=== PATIENT | male | born 1940 | race Caucasian/White ===

== ENCOUNTER 2016-06-25 06:05 | Observation (INO) | payer MEDICARE, BC ==
[2016-06-25 06:49] LABS: Hematocrit 42 % (42-52); Hemoglobin 14.6 g/dl (14.0-18.0); Mean Corpuscular HGB Conc 35 g/dl (31-36); Mean Corpuscular Hemoglobin 34 pg (27-31); Mean Corpuscular Volume 97 fL (80-94); Mean Platelet Volume 9 um3 (7.4-10.4); Red Blood Count 4.34 10^6/ul (4.0-5.4); Red Cell Distribution Width 13 % (10.5-15)
[2016-06-25 07:00] LABS: Albumin 3.8 g/dL (3.2-5.2); BUN/Creatinine Ratio 31.7 (8-20); Calcium 9.3 mg/dL (8.6-10.3); EGFR African American 116.9 (>60); EGFR Non-African American 90.9 (>60); Globulin 2.8 g/dL (2-4); Magnesium 2.1 mg/dL (1.9-2.7); Potassium 3.7 mmol/L (3.5-5.0); Total Bilirubin 1.2 mg/dL (0.2-1.0); Total Protein 6.6 g/dL (6.4-8.9)
[2016-06-25] MEDS ORDERED: NS 0.9% 500 ML* 500 ML IV ONE (07:00)
[2016-06-25 07:02] LABS: Troponin I 0.03 ng/mL (<0.04)
[2016-06-25 07:15] LABS: Urine Bacteria Absent (Absent); Urine Bilirubin Negative (Negative); Urine Glucose Negative (Negative); Urine Nitrite Negative (Negative)
[2016-06-25] MEDS ORDERED: NS 0.9% 1000 ML* 3,000 ML IV ONE (07:36)
[2016-06-25] MEDS ORDERED: Levofloxacin 750 MG IVPREMIX(* 750 MG/150 ML BAG IVPB ONE (07:37)
--- NOTE | 2016-06-25 09:00 | RAD ---
INDICATION: Syncope. COMPARISON: There are no prior studies available for comparison. TECHNIQUE: A portable view of the chest was obtained. FINDINGS: The heart appears mildly enlarged. The lungs are underinflated. There is a small infiltrate at the left lung base. IMPRESSION: EXPIRATORY EXAM, SMALL LEFT BASILAR INFILTRATE.
[2016-06-25] MEDS ORDERED: Acetaminophen TAB* 325 MG PO PRN (09:16)
[2016-06-25] MEDS ORDERED: Ondansetron INJ* 2 MG/ML VIAL IV PRN (09:16)
[2016-06-25] MEDS ORDERED: NS 0.9% 1000 ML* 1,000 ML IV SCH (09:30)
--- NOTE | 2016-06-25 09:43 | ED ---
I, Oh,Sojorge, scribed for Dyllan Razo MD on 06/25/16 at 0734 . Syncope/Near Syncope - HPI Summary HPI Summary: LEVEL 5 CAVEAT secondary to dementia This 76 y/o male [facility] ambulance for possible unwitnessed syncope after being found on floor this morning. Pt reports that he "ended up on floor", but does not recall how he got there. He is unable to report his activity at time of onset. Pt currently denies any pain , lightheadedness, dysuria, n/v, rhinorrhea, or sore throat. Blood pressure of 102/56 is noted at triage. 88~90% Oxygen sat on RA. Pt is afebrile at time of triage and initial evaluation. present at bedside reports incontinence this morning as well as AMS yesterday while out yesterday. She denies any recent cough. PMHx does include dementia, TIA, HTN, urolithiasis, CLBP, SBO, and GERD. No hx of afib or dysrhythmia per . Primary care involves Dr. Pink. Pt appears to be alert and oriented to place and self. 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 He lives lone at [facility]. expresses concerns that pt may not be able to care for himself back at [facility], and she requests observation admission. - History Of Current Complaint Chief Complaint: EDSyncope Hx Obtained From: Patient, Medical Records Hx From Patient Unobtainable Due To: Dementia Onset/Duration: Sudden Onset, Resolved Timing: Intermittent Episode Lasting Context: Unwitnessed Activity At Onset: Unknown Associated Signs And Symptoms: AMS - Allergies/Home Medications Allergies/Adverse Reactions: Allergies Allergy/AdvReac Type Severity Reaction Status Date / Time Hydrocodone Allergy Intermediate Itching Verified 06/25/16 07:50 Acetaminophen Allergy Unknown Verified 06/25/16 06:49 [From Darvocet-N] Reaction Details CI Pigment Blue 63 Allergy Unknown Verified 06/25/16 06:49 [From Cymbalta] Reaction Details Duloxetine [From Cymbalta] Allergy Unknown Verified 06/25/16 06:49 Reaction Details Meperidine [From Demerol HCl] Allergy Rash Verified 06/25/16 07:31 Propoxyphene Allergy Unknown Verified 06/25/16 06:49 [From Darvocet-N] Reaction Details Home Medications: Home Medications Acetaminophen [Eq Acetaminophen] 325 mg PO TID PRN 06/25/16 [History Confirmed 06/25/16] Aspirin EC Low Dose* [Ecotrin EC Low Dose*] 81 mg PO DAILY 06/25/16 [History Confirmed 06/25/16] Lisinopril [Zestril 10 MG-] 10 mg PO DAILY 06/25/16 [History Confirmed 06/25/16] Sertraline HCl [Zoloft] 100 mg PO DAILY 06/25/16 [History Confirmed 06/25/16] Vardenafil (NF) [Levitra (NF)] 10 mg PO DAILY PRN 06/25/16 [History Confirmed ] fentaNYL PATCH 75 MCG/HR* [Duragesic PATCH 75 Mcg/Hr*] 1 patch TRANSDERM Q72HR 06/25/16 [History Confirmed 06/25/16] PMH/Surg Hx/FS Hx/Imm Hx Endocrine/Hematology History: Denies: Hx Diabetes Cardiovascular History: Reports: Hx Hypertension, Other Cardiovascular Problems/ Disorders - Hx HTN Denies: Hx Pacemaker/ICD GI History: Reports: Hx Hiatal Hernia, Hx Obstructive Bowel - x2, Hx Ileostomy - reversed, Other GI Disorders - GI RESECTION WITH COLOSTOMY IN PAST History: Reports: Hx Kidney Stones, Other Problems/Disorders - Hx kidney stones Musculoskeletal History: Reports: Hx Arthritis, Hx Back Problems, Hx Scoliosis, Other Musculoskeletal History - lower back problem Denies: Hx Bursitis, Hx Congenital Bone Abnormalities, Hx Fibromyalgia, Hx Gout, Hx Orthopedic Injury, Hx Osteoporosis, Hx Tendonitis Sensory History: Reports: Hx Contacts or Glasses Denies: Hx Cataracts, Hx Glaucoma, Hx Macular Degeneration, Hx Deafness, Hx Hearing Aid Opthamlomology History: Reports: Hx Contacts or Glasses Denies: Hx Cataracts, Hx Glaucoma, Hx Macular Degeneration Neurological History: Reports: Hx Dementia, Hx Headaches, Hx Migraine, Hx Transient Ischemic Attacks (TIA) - admission diagnosis Denies: Hx Nerve Disease, Hx Seizures, Hx Spinal Cord Injury Psychiatric History: Denies: Hx Panic Disorder - Surgical History Surgery Procedure, Year, and Place: Colectomy w/ colostomy and reversal 12 yrs ago, appendectomy, double hernia repair as infant, tonsillectomy x2, bowel obstruction June, hip replacement 15years ago Hx Anesthesia Reactions: No - Immunization History Date of Tetanus Vaccine: Unknown Date of Influenza Vaccine: 2011 Infectious Disease History: No Infectious Disease History: Denies: Traveled Outside the [place] in Last 30 Days - Family History Known Family History: Positive: Other Family History: Positive for diverticulitis and heart failure per EMR - Social History Occupation: Retired Lives: Assisted Living - at [facility] Alcohol Use: None Alcohol Amount: glass of wine weekly Hx Substance Use: No Substance Use Type: Reports: None Hx Tobacco Use: No Smoking Status (MU): Never Smoked Tobacco Review of Systems - ROS Summary Review of Systems Summary: LEVEL 5 CAVEAT secondary to dementia Negative: Fever Negative: Nasal Discharge Positive: Other - hypoxia with O2 sat ~ 88% . Negative: Cough Negative: Vomiting, Nausea Positive: incontinence. Negative: dysuria Neurological: Other - negative for lightheaded dizziness Positive: Syncope - possible Positive: Other - AMS per . Negative: Anxious, Depressed All Other Systems Reviewed And Are Negative: No Physical Exam - Summary Physical Exam Summary: The patient is well-nourished in no acute distress and in no acute pain. The skin is warm and dry and skin color reflects adequate perfusion. Decreased skin turgor. Fentanyl patch in place. HEENT: The head is normocephalic and atraumatic. The pupils are equal and reactive. The conjunctivae are clear and without drainage. Nares are patent and without drainage. Mouth reveals DRY mucous membranes and the throat is without erythema and exudate. The external ears are intact. The ear canals are patent and without drainage. The tympanic membranes are intact. Neck is supple with full range of motion and non-tender. There are no carotid bruits. There is no neck vein distension. Respiratory: Chest is non-tender. Left basilar crackel. Cardiovascular: Hear is regular rate and rhythm. There is no murmur or rub auscultated. There is no peripheral edema and pulses are symmetrical and equal. 3 cap refills. Abdomen: The abdomen is soft and non-tender. There are normal bowel sounds heard in all four quadrants and there is no organomegaly palpated. Surgical scars on abd. Pt reports double hernia surgeries. Musculoskeletal: There is no back pain noted. Extremities are non-tender with full range of motion. There is good capillary refill. There is no peripheral edema or calf tenderness elicited. Neurological: Patient is alert and oriented to person, place and time. The patient has symmetrical motor strength in all four extremities. Cranial nerves are grossly intact. Deep tendon reflexes are symmetrical and equal in all four extremities. Psychiatric: The patient has an appropriate affect and does not exhibit any anxiety or depression. Triage Information Reviewed: Yes Vital Signs On Initial Exam: Initial Vitals BP 102/56 06/25/16 06:15 Vital Signs Reviewed: Yes Diagnostics - Vital Signs Vital Signs Temp Pulse Resp BP Pulse Ox 06/25/16 07:00 74 20 108/68 95 06/25/16 06:30 73 18 96/59 95 06/25/16 06:21 96.9 F 85 14 102/56 89 06/25/16 06:17 74 19 94 06/25/16 06:15 102/56 - Laboratory Lab Results: Lab Results 06/25/16 06/25/16 06/25/16 Range/Units 06:10 06:10 06:10 WBC 13.0 H (3.5-10.8) 10^3/ul RBC 4.34 (4.0-5.4) 10^6/ul Hgb 14.6 (14.0-18.0) g/dl Hct 42 (42-52) % MCV 97 H (80-94) fL MCH 34 H (27-31) pg MCHC 35 (31-36) g/dl RDW 13 (10.5-15) % Plt Count 149 L (150-450) 10^3/ul MPV 9 (7.4-10.4) um3 Neut % (Auto) 89.8 H (38-83) % Lymph % (Auto) 4.3 L (25-47) % [place] % (Auto) 5.5 (1-9) % Eos % (Auto) 0.1 (0-6) % Baso % (Auto) 0.3 (0-2) % Absolute Neuts (auto) 11.7 H (1.5-7.7) 10^3/ul Absolute Lymphs (auto) 0.6 L (1.0-4.8) 10^3/ul Absolute Monos (auto) 0.7 (0-0.8) 10^3/ul Absolute Eos (auto) 0 (0-0.6) 10^3/ul Absolute Basos (auto) 0 (0-0.2) 10^3/ul Absolute Nucleated RBC 0.01 10^3/ul Nucleated RBC % 0.1 INR (Anticoag Therapy) (0.89-1.11) APTT (26.0-36.3) seconds Sodium 139 (133-145) mmol/L Potassium 3.7 (3.5-5.0) mmol/L Chloride 106 (101-111) mmol/L Carbon Dioxide 24 (22-32) mmol/L Anion Gap 9 (2-11) mmol/L BUN 26 H (6-24) mg/dL Creatinine 0.82 (0.67-1.17) mg/dL Est GFR ( Amer) 116.9 (>60) Est GFR (Non-Af Amer) 90.9 (>60) BUN/Creatinine Ratio 31.7 H (8-20) Glucose 160 H (70-100) mg/dL Lactic Acid 2.1 H* (0.5-2.0) mmol/L Calcium 9.3 (8.6-10.3) mg/dL Magnesium 2.1 (1.9-2.7) mg/dL Total Bilirubin 1.20 H (0.2-1.0) mg/dL AST 15 (13-39) U/L ALT 15 (7-52) U/L Alkaline Phosphatase 46 (34-104) U/L Total Creatine Kinase 47 (10-223) U/L Troponin I 0.03 (<0.04) ng/mL B-Natriuretic Peptide ( - 100) pg/mL Total Protein 6.6 (6.4-8.9) g/dL Albumin 3.8 (3.2-5.2) g/dL Globulin 2.8 (2-4) g/dL Albumin/Globulin Ratio 1.4 (1-3) 06/25/16 06/25/16 Range/Units 06:10 06:10 WBC (3.5-10.8) 10^3/ul RBC (4.0-5.4) 10^6/ul Hgb (14.0-18.0) g/dl Hct (42-52) % MCV (80-94) fL MCH (27-31) pg MCHC (31-36) g/dl RDW (10.5-15) % Plt Count (150-450) 10^3/ul MPV (7.4-10.4) um3 Neut % (Auto) (38-83) % Lymph % (Auto) (25-47) % [place] % (Auto) (1-9) % Eos % (Auto) (0-6) % Baso % (Auto) (0-2) % Absolute Neuts (auto) (1.5-7.7) 10^3/ul Absolute Lymphs (auto) (1.0-4.8) 10^3/ul Absolute Monos (auto) (0-0.8) 10^3/ul Absolute Eos (auto) (0-0.6) 10^3/ul Absolute Basos (auto) (0-0.2) 10^3/ul Absolute Nucleated RBC 10^3/ul Nucleated RBC % INR (Anticoag Therapy) 1.02 (0.89-1.11) APTT 24.9 L (26.0-36.3) seconds Sodium (133-145) mmol/L Potassium (3.5-5.0) mmol/L Chloride (101-111) mmol/L Carbon Dioxide (22-32) mmol/L Anion Gap (2-11) mmol/L BUN (6-24) mg/dL Creatinine (0.67-1.17) mg/dL Est GFR ( Amer) (>60) Est GFR (Non-Af Amer) (>60) BUN/Creatinine Ratio (8-20) Glucose (70-100) mg/dL Lactic Acid (0.5-2.0) mmol/L Calcium (8.6-10.3) mg/dL Magnesium (1.9-2.7) mg/dL Total Bilirubin (0.2-1.0) mg/dL AST (13-39) U/L ALT (7-52) U/L Alkaline Phosphatase (34-104) U/L Total Creatine Kinase (10-223) U/L Troponin I (<0.04) ng/mL B-Natriuretic Peptide 63 ( - 100) pg/mL Total Protein (6.4-8.9) g/dL Albumin (3.2-5.2) g/dL Globulin (2-4) g/dL Albumin/Globulin Ratio (1-3) Result Diagrams: 06/25/16 06:10 06/25/16 06:10 Lab Statement: Any lab studies that have been ordered have been reviewed, and results considered in the medical decision making process. - Radiology CXR Xray Interpretation: Positive (See Comments) - Expiratory exam. Small left basilar infiltrate Radiology Interpretation Completed By: Radiologist - EKG 0574 Cardiac Rate: NL - 81 bpm EKG Rhythm: Sinus Rhythm ST Segment: Non-Specific Ectopy: PVCs EKG Interpretation: Non-specific ST changes with PVCs. Left axis. Course/Dx Assessment/Plan: This 76 y/o male presents to ED via ambulance after being found on floor in his room at [facility]. He lives alone, and a possible syncopal episode was unwitnessed. PMHx does include dementia. He is alert and somewhat oriented but unable to recall how he ended up on floor. is present at bedside and reports AMS yesterday and urinary incontinence this morning. Upon examination pt is noted with left basilar crackle, soft blood pressure of 102/56, and dehydration. Bloodwork reveals elevated WBC of 13.0 and lactic acid of 2.1. UA does not indicate UTI. Pt is empirically treated with levaquin and IV fluid. - Diagnoses Differential Diagnosis/HQI/PQRI: Positive: Coronary Artery Disease, Hypovolemia , Myocardial Infarction, Other - dehydration, sepsis, pneumonia, uti Provider Diagnoses: Syncope, Dehydration, Pneumonia - Physician Notifications Discussed Care Of Patient With: Dr. Valdes (Hospitalist) at 0750 AM Time Discussed With Above Provider: 07:50 Instructed by Provider To: MD Will See In ED Discharge - Discharge Plan Condition: Stable Disposition: ADMITTED TO [facility] Referrals: Mee Pink MD [Primary Care Provider] - The documentation as recorded by the Adan nesbitt Soohyun accurately reflects the service I personally performed and the decisions made by , Dyllan Razo MD.
--- NOTE | 2016-06-25 10:03 | RAD ---
INDICATION: Unwitnessed fall. COMPARISON: Comparison is made with a prior CT of the brain from November 28, 2013. TECHNIQUE: Contiguous axial sections of the brain were obtained from the skull base to the vertex without contrast. FINDINGS: The ventricles, cisterns and sulci are enlarged consistent with diffuse atrophy. No significant focal abnormality or mass effect is seen. There is no evidence for hemorrhage. No significant focal osseous abnormality is seen. The paranasal sinuses and mastoid air cells appear clear. IMPRESSION: 1. NO EVIDENCE FOR ACUTE INTRACRANIAL ABNORMALITY. 2. MODERATE DIFFUSE ATROPHY.
--- NOTE | 2016-06-25 11:58 | HP ---
ADMISSION HISTORY AND PHYSICAL: DATE OF ADMISSION: 06/25/16 PRIMARY CARE PROVIDER: Dr. Pink. HEALTHCARE PROXY: His . CODE STATUS: DNR/DNI, reviewed with the patient's . SOURCE OF INFORMATION: Information was obtained from interview with the ED physician, the patient's , as well as the patient, although his contribution is unreliable. CHIEF COMPLAINT: Found down. HISTORY OF PRESENT ILLNESS: This is a 76-year-old man with a past medical history of Alzheimer's disease, who reports that he has felt in his usual state of health, although notes that yesterday, she took him out of [place] and he looked "reddy" and like a "deer in the headlights." They did go to [employer] and had some food after which she returned to [place] and left him alone. He went to bed and information thereafter is fairly unreliable. However, he was found this morning around 5 a.m. on the floor. He soiled his underwear with an episode of an urinary incontinence. On presentation to the emergency room, his O2 saturation was 89%. The also indicates that he has been losing weight slowly. His memory is poor. He does not remember to eat. She does deny any recent cough for the patient nor any recent fevers or chills, nausea, vomiting, diarrhea, or symptoms, although it is unclear if the patient will report these. There have been no changes in his medications. When seen by this author , the patient is denying any chest pain, shortness of breath, nausea, vomiting, lightheadedness, palpitations. He generally feels well and has no complaints. PAST MEDICAL HISTORY: 1. Alzheimer's disease. 2. Diastolic heart failure, compensated, based on transthoracic echocardiogram in 2013 3. Chronic lower back pain. 4. Hypertension. 5. Urolithiasis. 6. Diverticulitis, status post two SBOs requiring surgery. 7. GERD. 8. Colostomy, status post reversal. 9. Appendectomy. 10. Hernia repair. HOME MEDICATIONS: 1. Levitra 10 mg daily as needed. 2. Acetaminophen 325 mg three times a day as needed. 3. Multivitamin 1 tab daily. 4. Zoloft 100 mg daily. 5. Prilosec 20 mg daily. 6. Lisinopril 10 mg daily. 7. Fentanyl patch 75 mcg every 3 days. 8. Docusate 100 mg daily. 9. Aspirin 81 mg daily. ALLERGIES: To , HYDROCODONE, ACETAMINOPHEN, PIGMENT BLUE 63, CYMBALTA, DEMEROL, and DARVOCET. The allergy to HYDROCODONE is noted to be, he was confused when discussed with his , although noted to be itching in the chart. FAMILY HISTORY: Reviewed and noncontributory to this admission. SOCIAL HISTORY: No tobacco. No history of alcohol. denies any past medical history of alcohol abuse. Lives at [place]. REVIEW OF SYSTEMS: As per HPI; otherwise, all other systems negative. PHYSICAL EXAMINATION GENERAL: Lying flat in bed, interactive, pleasant, smiling, in no apparent distress. VITAL SIGNS: When seen by this author, 103/60; heart rate 74; he is 98% on 3.5 L nasal cannula, decreased to 94% on room air; respiratory rate of 16; T-max in the emergency room of 96.9. HEENT: Oropharynx is clear. He has moist mucous membranes. His tongue has a very small area of bruising in the right anterior process suggesting bite. NECK: He has nonelevated ___JVD__. No cervical or supraclavicular lymphadenopathy. No carotid bruits. LUNGS: Largely clear except for an area of rales. They do not clear with coughing on his left base. HEART: Regular rate and rhythm. No murmurs, rubs, or gallops. ABDOMEN: Soft, nontender, and nondistended. EXTREMITIES: Warm and well perfused. Less than 2-second cap refill. Good skin turgor. He has no lower extremity edema. NEUROLOGIC: He is alert and oriented x2 to self and hospital, first thinks it is [place], but corrects himself. Unable to name the year. His cranial nerves II through XII are tested and intact. Gait not assessed. PSYCH: No anxiety, agitation, or depression. DIAGNOSTIC STUDIES: Data reviewed: Chest x-ray, small left basilar infiltrate. EKG: Ventricular trigeminy, left axis, Q in aVF, normal R-wave progression, no ST or T-wave changes. ASSESSMENT AND PLAN: This is a 76-year-old man, past medical history of Alzheimer's dementia, presenting after being found down on the floor. 1. Found down on the floor, differential is broad. The patient may very well have just fell out of bed and does not remember. However, malignant arrhythmias , cardiac etiology, or underlying infection likely a possibility as are seizures. At this point, the thinks he looks much improved with the administration of levofloxacin as well as 1.5 L of fluid. I think he warrants observation. Continue telemetry overnight. I will continue another liter of fluid at 125 cc per hour of normal saline. Levaquin to continue tomorrow. We will check CT head given he underwent this fall. Check a repeat troponin. 2. Basilar infiltrate, pneumonia consistent with physical exam. Receiving Levaquin and IV fluids as indicated above. Repeat white blood cell count tomorrow. Likely etiology of hypoxia. 3. Lactic acidosis in the setting of pneumonia and fall. Repeat now. 4. Hypertension. Hold lisinopril in the setting of systolic of 103, diastolic 60. 5. DVT prophylaxis. Lovenox. 6. Code status. DNR/DNI. MOLST completed and placed in the chart. [id number]/CPS #: [id number] SUPA
[2016-06-25] MEDS: Enoxaparin(*) 40 MG/0.4 ML SYR SUBCUT SCH (13:26)
[2016-06-25] MEDS ORDERED: fentaNYL PATCH 75 MCG/HR* 75 MCG TRANSDERM SCH (18:00)
[2016-06-26 06:38] LABS: Hematocrit 37 % (42-52); Hemoglobin 12.7 g/dl (14.0-18.0); Mean Corpuscular HGB Conc 34 g/dl (31-36); Mean Corpuscular Hemoglobin 34 pg (27-31); Mean Corpuscular Volume 99 fL (80-94); Mean Platelet Volume 9 um3 (7.4-10.4); Red Blood Count 3.78 10^6/ul (4.0-5.4); Red Cell Distribution Width 13 % (10.5-15); White Blood Count 6.1 10^3/ul (3.5-10.8)
[2016-06-26 07:00] LABS: BUN/Creatinine Ratio 26.7 (8-20); Calcium 8.7 mg/dL (8.6-10.3); EGFR African American 129.5 (>60); EGFR Non-African American 100.7 (>60); Potassium 3.4 mmol/L (3.5-5.0)
[2016-06-26] MEDS ORDERED: Sertraline* 100 MG TAB PO SCH (09:00)
[2016-06-26] MEDS ORDERED: Aspirin EC Low Dose* 81 MG TAB.EC PO SCH (09:00)
[2016-06-26] MEDS ORDERED: Omeprazole CAP* 20 MG PO SCH (09:00)
[2016-06-26] MEDS ORDERED: Docusate CAP* 100 MG PO SCH (09:00)
[2016-06-26] MEDS ORDERED: Levofloxacin 750 MG IVPREMIX(* 750 MG/150 ML BAG IVPB SCH (09:00)
[2016-06-26] MEDS: Enoxaparin(*) 40 MG/0.4 ML SYR SUBCUT SCH (09:45)
[2016-06-26 12:53] VITALS: BP 119/69
--- NOTE | 2016-06-26 14:24 | DS ---
DISCHARGE SUMMARY: DATE OF ADMISSION: 06/25/16 DATE OF DISCHARGE: 06/26/16 PRIMARY CARE PROVIDER: Dr. Pink. PRIMARY DIAGNOSES: 1. Pneumonia. 2. Unwitnessed fall out of bed. SECONDARY DIAGNOSES: Include: 1. Alzheimer's disease. 2. Compensated diastolic heart failure. 3. Chronic lower back pain. 4. Hypertension. 5. Gastroesophageal reflux disease. 6. Depression. MEDICATIONS ON DISCHARGE: 1. Levitra 10 mg daily as needed. 2. Acetaminophen 325 mg 3 times a day as needed. 3. Multivitamin 1 tab daily. 4. Zoloft 100 mg daily. 5. Prilosec 20 mg a day. 6. Fentanyl patch 75 mcg daily, change every 3 days. 7. Docusate 100 mg daily. 8. Aspirin 81 mg daily. 9. Levaquin 750 mg for 5 additional days. MICROBIOLOGY: Blood cultures, no growth to date. White blood cell count 13, 000 on presentation, 6.1 on following day. PERTINENT IMAGING DATA: Chest x-ray, small left basilar infiltrate. HISTORY OF PRESENT ILLNESS AND HOSPITAL COURSE: This is a 76-year-old man with a past medical history as outlined in the history of present illness on the day of admission by this author including Alzheimer's disease, who had noted he was feeling in his usual state of health, however, did spend the entire date of admission with who noted that the patient had looked " reddy" and like a "deer in the headlights." He is a resident of [place] and went to bed without assistance, was found in the morning on the floor with urinary incontinence. He did not remember the events surrounding his fall. He had a negative CT head for any intracranial abnormalities or bleed. He was admitted to the hospital after his O2 saturation on presentation was found to be 89% and the chest x-ray was consistent with small left basilar pneumonia with IV hydration of normal saline and Levaquin, the patient's condition greatly improved. He is on room air on day of the discharge with no complaints. The thought he is greatly improved and at his baseline. There were no complications during the course of this hospital stay. At followup please; 1. Ensure blood pressure control. 2. Lisinopril was discontinued on discharge, as he was not receiving during the course of his hospital stay and blood pressure was well controlled/low. 3. No other specific labs or vitals that need followup. Reasons to return to the hospital including, but not limited to recurrent or worsening symptoms, chest pain, shortness of breath, nausea, vomiting, lightheadedness, loss of consciousness, inability to obtain or tolerate medications discussed with the patient's . TIME SPENT: Greater than 30 minutes was spent on discharging this patient, greater than half was spent [id number] with the patient. CC: Dr. Pink.* [id number]/CPS #: [id number] SUPA
[2016-06-28] MEDS ORDERED: fentaNYL Patch Check Q Shift 1 NOTE SCH (19:00)
== END 2016-06-26 14:35 ==
LOC: ED 06:05 → MEDTELE 09:16
PROVIDERS: ADMIT Internal Medicine; ATTEND Internal Medicine
DX: J18.9 Pneumonia, unspecified organism (principal); W06.XXXA Fall from bed, initial encounter; Y92.9 Unspecified place or not applicable; E87.2 Acidosis; G30.9 Alzheimer's disease, unspecified; F02.80 Dementia in other diseases classified elsewhere, unspecified severity, without behavioral disturbance, psychotic disturbance, mood disturbance, and anxiety; M54.5 Low back pain; G89.29 Other chronic pain; K21.9 Gastro-esophageal reflux disease without esophagitis; F32.9 Major depressive disorder, single episode, unspecified; Z88.2 Allergy status to sulfonamides; Z88.8 Allergy status to other drugs, medicaments and biological substances; Z88.6 Allergy status to analgesic agent; I49.3 Ventricular premature depolarization; G31.9 Degenerative disease of nervous system, unspecified; R94.31 Abnormal electrocardiogram [ECG] [EKG]; R09.02 Hypoxemia; R06.00 Dyspnea, unspecified; I11.0 Hypertensive heart disease with heart failure; I50.30 Unspecified diastolic (congestive) heart failure
CPT/HCPCS: 36415; 70450; 71010; 80048; 80053; 81003; 81015; 82550; 83605; 83735; 83880; 84484; 85025; 85610; 85730; 87040; 93005; 96365; 96366; 96372; 99285; A9270-GY; G0378; J1650

== ENCOUNTER 2017-11-04 17:54 | Emergency (ER) | payer MEDICARE, OTHER ==
[2017-11-04 19:10] LABS: ABS Basophils 0 10^3/ul (0-0.2); ABS Eosinophils 0.4 10^3/ul (0-0.6); ABS Lymphocytes 1.3 10^3/ul (1.0-4.8); ABS Monocytes 0.5 10^3/ul (0-0.8); ABS Neutrophils 4.9 10^3/ul (1.5-7.7); ABS Nucleated RBC 0 10^3/ul; Eosinophil % 6.1 % (0-6); Hematocrit 45 % (42-52); Hemoglobin 15.5 g/dl (14.0-18.0); Lymphocyte % 18.1 % (25-47); Mean Corpuscular HGB Conc 35 g/dl (31-36); Mean Corpuscular Hemoglobin 34 pg (27-31); Mean Corpuscular Volume 99 fL (80-94); Mean Platelet Volume 7.7 um3 (7.4-10.4); Nucleated Red Blood Cells % 0; Platelet Count 144 10^3/ul (150-450); Red Blood Count 4.51 10^6/ul (4.0-5.4); Red Cell Distribution Width 13 % (10.5-15); White Blood Count 7.3 10^3/ul (3.5-10.8)
[2017-11-04 19:32] LABS: EGFR Non-African American 52.8 (>60)
--- NOTE | 2017-11-04 19:41 | RAD ---
Indication: Altered mental status. Confusion. Comparison: June 25, 2016 chest radiograph and June 06, [address] Technique: Upright AP 1845 hours Report: Leftward rotation noted. Large chronic retrocardiac hiatal hernia. Mild cardiomegaly. Unremarkable central pulmonary vasculature. Mildly tortuous thoracic aorta. No focal pulmonary lesion, compelling alveolar consolidation, pleural effusion, pneumothorax. IMPRESSION: Chronic large retrocardiac hiatal hernia. Mild cardiomegaly without significant change compared with the 2017 exam. No acute cardiopulmonary process evident.
[2017-11-04] MEDS ORDERED: NS 0.9% 1000 ML* 1,000 ML IV ONE (19:49)
[2017-11-04 20:15] LABS: Urine Appearance Cloudy; Urine Blood Negative (Negative); Urine Color Amber; Urine Ketones Negative (Negative); Urine Protein Negative (Negative); Urine Specific Gravity 1.021 (1.010-1.030); Urine Urobilinogen Negative (Negative)
--- NOTE | 2017-11-04 21:12 | ED ---
Jared Franco Natalie, scribed for Thee Fernandes MD on 11/04/17 at 1908 . Altered Mental Status - HPI Summary HPI Summary: The patient is a 77 y/o M presenting to the ED from [facility] accompanied by c/o weakness and confusion starting this morning around 11:30. Per , the pt seemed off this morning when he was with his family. Then she got report from a staff member that the pt had to be wheeled to lunch in a wheelchair because he couldn't ambulate. When the pt's got to the pt's room at approximately 16:30, she found him soaked, which the patient said was shelbi rebecca but the found no evidence of that. She then got him into the shower to wash him off and she noticed the pt was unable to do things like he normally can. He could not figure out how to move his feet to get out of the shower, he was asked to open his eyes but he opened his mouth instead, and then he couldn' t figure out how to get a cup to his mouth. 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 Currently, the pt states he is not in pain, and his states that he is back to baseline. He denies nausea but does not have an appetite. - History Of Current Complaint Chief Complaint: EDAltMentalStatus Stated Complaint: CONFUSION Time Seen by Provider: 11/04/17 18:16 Hx Obtained From: Patient, Family/Constitutional Law Professor - Onset/Duration: Resolved, Suddenly Timing: Lasting Hours Severity Initially: Severe Severity Currently: Mild Character: Confusion Aggravating Factor(s): Nothing Alleviating Factor(s): Nothing Associated Signs And Symptoms: Positive: Weakness. Negative: Nausea - Allergies/Home Medications Allergies/Adverse Reactions: Allergies Allergy/AdvReac Type Severity Reaction Status Date / Time MS Hydrocodone [Hydrocodone] Allergy Intermediate Itching Verified 06/25/16 07: 50 MS Acetaminophen Allergy Unknown Verified 06/25/16 06:49 [From Darvocet-N] Reaction Details MS CI Pigment Blue 63 Allergy Unknown Verified 06/25/16 06:49 [From Cymbalta] Reaction Details MS Duloxetine [From Cymbalta] Allergy Unknown Verified 06/25/16 06:49 Reaction Details MS Meperidine Allergy Rash Verified 06/25/16 07:31 [From Demerol HCl] MS Propoxyphene Allergy Unknown Verified 06/25/16 06:49 [From Darvocet-N] Reaction Details Home Medications: Home Medications Acetaminophen TAB* [Tylenol TAB*] 650 mg PO TID PRN 11/04/17 [History Confirmed 11/04/17] Lisinopril TAB* [Prinivil TAB*] 10 mg PO DAILY 11/04/17 [History Confirmed 11/04] Meloxicam(NF) [Mobic(NF)] 7.5 mg PO DAILY 11/04/17 [History Confirmed 11/04/17] Multivitamins/Minerals TAB* [Theragran/minerals TAB*] 1 tab PO DAILY 11/04/17 [ History Confirmed 11/04/17] Sertraline* [Zoloft*] 100 mg PO DAILY 11/04/17 [History Confirmed 11/04/17] PMH/Surg Hx/FS Hx/Imm Hx Endocrine/Hematology History: Denies: Hx Diabetes Cardiovascular History: Reports: Hx Hypertension, Other Cardiovascular Problems/ Disorders - Hx HTN Denies: Hx Angina, Hx Pacemaker/ICD GI History: Reports: Hx Hiatal Hernia, Hx Obstructive Bowel - x2, Hx Ileostomy - reversed, Other GI Disorders - GI RESECTION WITH COLOSTOMY IN PAST History: Reports: Hx Kidney Stones, Other Problems/Disorders - Hx kidney stones Musculoskeletal History: Reports: Hx Arthritis, Hx Back Problems, Hx Scoliosis, Other Musculoskeletal History - lower back problem Denies: Hx Bursitis, Hx Congenital Bone Abnormalities, Hx Fibromyalgia, Hx Gout, Hx Orthopedic Injury, Hx Osteoporosis, Hx Tendonitis Sensory History: Reports: Hx Contacts or Glasses - reading, Hx Hearing Problem Denies: Hx Cataracts, Hx Glaucoma, Hx Macular Degeneration, Hx Deafness, Hx Hearing Aid Opthamlomology History: Reports: Hx Contacts or Glasses - reading Denies: Hx Cataracts, Hx Glaucoma, Hx Macular Degeneration Neurological History: Reports: Hx Dementia, Hx Headaches, Hx Migraine, Hx Transient Ischemic Attacks (TIA) Denies: Hx Nerve Disease, Hx Seizures, Hx Spinal Cord Injury Psychiatric History: Reports: Hx Anxiety, Hx Depression Denies: Hx Panic Disorder - Surgical History Surgery Procedure, Year, and Place: Colectomy w/ colostomy and reversal 12 yrs ago, appendectomy, double hernia repair as infant, tonsillectomy x2, bowel obstruction June Right hip replacement 15years ago Hx Anesthesia Reactions: No - Immunization History Date of Tetanus Vaccine: Unknown Date of Influenza Vaccine: 2011 Infectious Disease History: No Infectious Disease History: Denies: Traveled Outside the [place] in Last 30 Days - Family History Known Family History: Positive: Other Family History: Positive for diverticulitis and heart failure per EMR - Social History Alcohol Use: None Alcohol Amount: glass of wine weekly Hx Substance Use: No Substance Use Type: Reports: None Hx Tobacco Use: No Smoking Status (MU): Never Smoked Tobacco Review of Systems Positive: Other - decreased appetite. Negative: Nausea Neurological: Negative - facial droop, Other - difficulty with actions, strong switchboard installer Positive: Weakness - unable to ambulate All Other Systems Reviewed And Are Negative: Yes Physical Exam - Summary Physical Exam Summary: Appearance: The patient is well-nourished in no acute distress and in no acute pain. Skin: The skin is warm and dry and skin color reflects adequate perfusion. HEENT: The head is normocephalic and atraumatic. The pupils are equal and reactive. The conjunctivae are clear and without drainage. Nares are patent and without drainage. Mouth reveals moist mucous membranes and the throat is without erythema and exudate. The external ears are intact. The ear canals are patent and without drainage. The tympanic membranes are intact. Neck: The neck is supple with full range of motion and non-tender. There are no carotid bruits. There is no neck vein distension. Respiratory: Chest is non-tender. Lungs are clear to auscultation and breath sounds are symmetrical and equal. Cardiovascular: Heart is regular rate and rhythm. There is a soft systolic injection murmur but no rub auscultated. There is no peripheral edema and pulses are symmetrical and equal. Abdomen: The abdomen is soft and non-tender. There are normal bowel sounds heard in all four quadrants and there is no organomegaly palpated. Musculoskeletal: There is no back tenderness noted. Extremities are non-tender with full range of motion. There is good capillary refill. There is no peripheral edema or calf tenderness elicited. Neurological: Patient is alert and oriented to person, place and time. The patient has symmetrical motor strength in all four extremities. Cranial nerves are grossly intact. Deep tendon reflexes are symmetrical and equal in all four extremities. Psychiatric: The patient has an appropriate affect and does not exhibit any anxiety or depression. Triage Information Reviewed: Yes Vital Signs On Initial Exam: Initial Vitals Temp Pulse Resp BP Pulse Ox 97.8 F 59 18 117/79 94 11/04/17 18:06 11/04/17 18:06 11/04/17 18:06 11/04/17 18:06 11/04/17 18:06 Vital Signs Reviewed: Yes Diagnostics - Vital Signs Vital Signs Temp Pulse Resp BP Pulse Ox 11/04/17 18:06 97.8 F 59 18 117/79 94 - Laboratory Lab Results: Lab Results 11/04/17 11/04/17 11/04/17 Range/Units 18:54 19:06 19:06 WBC 7.3 (3.5-10.8) 10^3/ul RBC 4.51 (4.0-5.4) 10^6/ul Hgb 15.5 (14.0-18.0) g/dl Hct 45 (42-52) % MCV 99 H (80-94) fL MCH 34 H (27-31) pg MCHC 35 (31-36) g/dl RDW 13 (10.5-15) % Plt Count 144 L (150-450) 10^3/ul MPV 7.7 (7.4-10.4) um3 Neut % (Auto) 68.1 (38-83) % Lymph % (Auto) 18.1 L (25-47) % [place] % (Auto) 7.1 H (0-7) % Eos % (Auto) 6.1 H (0-6) % Baso % (Auto) 0.6 (0-2) % Absolute Neuts (auto) 4.9 (1.5-7.7) 10^3/ul Absolute Lymphs (auto) 1.3 (1.0-4.8) 10^3/ul Absolute Monos (auto) 0.5 (0-0.8) 10^3/ul Absolute Eos (auto) 0.4 (0-0.6) 10^3/ul Absolute Basos (auto) 0 (0-0.2) 10^3/ul Absolute Nucleated RBC 0 10^3/ul Nucleated RBC % 0 Sodium 141 (139-145) mmol/L Potassium 4.4 (3.5-5.0) mmol/L Chloride 106 (101-111) mmol/L Carbon Dioxide 28 (22-32) mmol/L Anion Gap 7 (2-11) mmol/L BUN 32 H (6-24) mg/dL Creatinine 1.31 H (0.67-1.17) mg/dL Est GFR ( Amer) 67.9 (>60) Est GFR (Non-Af Amer) 52.8 (>60) BUN/Creatinine Ratio 24.4 H (8-20) Glucose 100 (70-100) mg/dL Lactic Acid 1.1 (0.5-2.0) mmol/L Calcium 10.0 (8.6-10.3) mg/dL Total Bilirubin 0.60 (0.2-1.0) mg/dL AST 17 (13-39) U/L ALT 14 (7-52) U/L Alkaline Phosphatase 59 (34-104) U/L Troponin I 0.01 (<0.04) ng/mL Total Protein 7.0 (6.4-8.9) g/dL Albumin 4.2 (3.2-5.2) g/dL Globulin 2.8 (2-4) g/dL Albumin/Globulin Ratio 1.5 (1-3) Urine Color Urine Appearance Urine pH (5-9) Ur Specific [place] (1.010-1.030) Urine Protein (Negative) Urine Ketones (Negative) Urine Blood (Negative) Urine Nitrate (Negative) Urine Bilirubin (Negative) Urine Urobilinogen (Negative) Ur Leukocyte Esterase (Negative) Urine Glucose (Negative) Urine Ascorbic Acid (Negative) 11/04/17 Range/Units 19:56 WBC (3.5-10.8) 10^3/ul RBC (4.0-5.4) 10^6/ul Hgb (14.0-18.0) g/dl Hct (42-52) % MCV (80-94) fL MCH (27-31) pg MCHC (31-36) g/dl RDW (10.5-15) % Plt Count (150-450) 10^3/ul MPV (7.4-10.4) um3 Neut % (Auto) (38-83) % Lymph % (Auto) (25-47) % [place] % (Auto) (0-7) % Eos % (Auto) (0-6) % Baso % (Auto) (0-2) % Absolute Neuts (auto) (1.5-7.7) 10^3/ul Absolute Lymphs (auto) (1.0-4.8) 10^3/ul Absolute Monos (auto) (0-0.8) 10^3/ul Absolute Eos (auto) (0-0.6) 10^3/ul Absolute Basos (auto) (0-0.2) 10^3/ul Absolute Nucleated RBC 10^3/ul Nucleated RBC % Sodium (139-145) mmol/L Potassium (3.5-5.0) mmol/L Chloride (101-111) mmol/L Carbon Dioxide (22-32) mmol/L Anion Gap (2-11) mmol/L BUN (6-24) mg/dL Creatinine (0.67-1.17) mg/dL Est GFR ( Amer) (>60) Est GFR (Non-Af Amer) (>60) BUN/Creatinine Ratio (8-20) Glucose (70-100) mg/dL Lactic Acid (0.5-2.0) mmol/L Calcium (8.6-10.3) mg/dL Total Bilirubin (0.2-1.0) mg/dL AST (13-39) U/L ALT (7-52) U/L Alkaline Phosphatase (34-104) U/L Troponin I (<0.04) ng/mL Total Protein (6.4-8.9) g/dL Albumin (3.2-5.2) g/dL Globulin (2-4) g/dL Albumin/Globulin Ratio (1-3) Urine Color [place] Urine Appearance Cloudy Urine pH 5.0 (5-9) Ur Specific [place] 1.021 (1.010-1.030) Urine Protein Negative (Negative) Urine Ketones Negative (Negative) Urine Blood Negative (Negative) Urine Nitrate Negative (Negative) Urine Bilirubin Negative (Negative) Urine Urobilinogen Negative (Negative) Ur Leukocyte Esterase Negative (Negative) Urine Glucose Negative (Negative) Urine Ascorbic Acid * A (Negative) Result Diagrams: 11/04/17 19:06 11/04/17 19:06 Lab Statement: Any lab studies that have been ordered have been reviewed, and results considered in the medical decision making process. - Radiology CXR Xray Interpretation: Positive (See Comments) - Chronic large retrocardiac hiatal hernia. Mild cardiomegaly without significant change compared with the 2017 exam. No acute cardiopulmonary process evident. ED physician has reviewed this report. Radiology Interpretation Completed By: Radiologist - EKG 18:59 Cardiac Rate: Bradycardia EKG Rhythm: Sinus Bradycardia - 53 BPM EKG Interpretation: Prolonged OR interval. LVH. Re-Evaluation - Re-Evaluation First Eval Re-Evaluation Time: 20:50 Change: Improved Comment: I spoke with the patient about imaging, labwork, and discharge home. Altered Mental Statu Course/Dx - Course Course Of Treatment: It is unclear exactly what transpired with Mr. Avery today. By the time of arrival in the emergency department his felt that he was back to his normal self. Routine labs were ordered and he was found to be mildly dehydrated and given a liter of normal saline. I will let him go back to the retirement and recommend follow-up with his PCP. - Diagnoses Provider Diagnoses: Dehydration Discharge - Sign-Out/Discharge Documenting (check all that apply): Discharge/Admit/Transfer - Discharge Plan Condition: Stable Disposition: HOME Patient Education Materials: Dehydration (ED) Referrals: Mee Pink MD [Primary Care Provider] - 3 Days Additional Instructions: Follow up with your primary care provider in 2-3 days. Return to the emergency department for any new or worsening symptoms. - Billing Disposition and Condition Condition: STABLE Disposition: HOME The documentation as recorded by the Jared nesbitt Natalie accurately reflects the service I personally performed and the decisions made by me, Thee Fernandes MD.
[2017-11-04 21:29] VITALS: BP 153/90
== END 2017-11-04 21:29 | disposition home or self-care (01) ==
LOC: ED 17:54
DX: E86.0 Dehydration (principal); I10 Essential (primary) hypertension; I51.7 Cardiomegaly; K44.9 Diaphragmatic hernia without obstruction or gangrene; F03.90 Unspecified dementia, unspecified severity, without behavioral disturbance, psychotic disturbance, mood disturbance, and anxiety; Z86.73 Personal history of transient ischemic attack (TIA), and cerebral infarction without residual deficits; Z88.5 Allergy status to narcotic agent; Z88.8 Allergy status to other drugs, medicaments and biological substances
CPT/HCPCS: 36415; 71045; 80053; 81003; 83605; 84484; 85025; 93005; 96360; 99283

== ENCOUNTER 2019-02-03 11:36 | Inpatient (IN) | payer MEDICARE, OTHER ==
--- OUTSIDE RECORDS SUMMARY | 2019-02-03 12:06 | XMS REPORT | Summary of Care ---
:1940 Author Organization [facility] Address [address] [address] Care Team Providers Name Role Phone Mee Pink MD Primary Care Provider Reason for Visit Reason Comments ER F/U [facility] 01-27-19. Reduced Fentanyl Encounter Details Date Type Department Care Team Description 01/30/2019 Office Visit [facility] Internal Mee Pink MD Chronic low back pain without sciatica, unspecified back pain laterality ( Primary Dx); Medicine [address] Alzheimer's dementia without behavioral disturbance, unspecified timing of dementia onset [address] [place], [place] [id number] [place] [address] [phone] Allergies Active Allergy Reactions Severity Noted Date Comments Duloxetine Hcl ASSOCIATE DOCTOR Reaction 02/06/2013 Made too tired Propoxyphene N-Apap Other 07/20/2007 HALLUCINATIONS Demerol Other 07/20/2007 HALLUCINATIONS documented as of this encounter (statuses as of 01/30/2019) Medications Medication Sig Dispensed Refills Start Date End Date Status acetaminophen Take 2 Tabs by 100 Tab 3 04/13/2015 Active (TYLENOL) 325 MG mouth THREE Oral TabIndications: TIMES DAILY Fever, Pain NEEDED for Pain or Fever. Patient unable to identify need Indications: Fever, Pain therapeutic Take 1 Tab by 30 Tab 11 05/15/2017 Active multivitamin mouth DAILY. (THERAGRAN-M) Oral TabIndications: Nutritional Support Wound Dressings 1 Each by Apply 30 Each 0 06/18/2018 Active (TEGADERM MATRIX externally DRESSING) Apply route EVERY externally THREE DAYS. PadsIndications: Apply over Chronic low back Fentanyl patch pain without every 3 days sciatica, unspecified back pain laterality Incontinence Supply 1 Each by Does 100 Each 5 06/21/2018 Active Disposable (PROCARE not apply route ADULT BRIEFS LARGE) DIRECTED. Does not apply MiscIndications: Alzheimer's dementia without behavioral disturbance, unspecified timing of dementia onset acetaminophen Take 2 Tabs by 60 Tab 5 06/21/2018 Active (TYLENOL) 500 MG mouth TWO Oral Tab TIMES DAILY BEFORE MEALS. lisinopril Take 1 Tab by 90 Tab 3 08/15/2018 Active (PRINIVIL, ZESTRIL) mouth DAILY. 10 MG Oral TabIndications: Mixed hyperlipidemia Vitamins A & D (BABY 1 Dose by Apply 1 Tube 3 12/04/2018 Active VITAMIN A & D) Apply externally externally Ointment route DAILY NEEDED (as needed). Vitamins A & D (BABY 1 Dose by Apply 1 Tube 3 12/04/2018 Active VITAMIN A & D) Apply externally externally Ointment route DAILY NEEDED (as needed). docusate sodium Take 1 Cap by 90 Cap 3 12/04/2018 Active (DOCQLACE) 100 MG mouth DAILY. Oral Cap sertraline (ZOLOFT) Take 0.5 Tabs 90 Tab 3 12/10/2018 Active 100 MG Oral by mouth DAILY. TabIndications: Depression, unspecified depression type sertraline (ZOLOFT) Take 1 Tab by 90 Tab 3 12/11/2018 Active 50 MG Oral Tab mouth DAILY. fentaNYL (DURAGESIC) Place 1 Patch 10 Patch 0 01/30/2019 Active 50 MCG/HR onto skin EVERY Transdermal PATCH 72 THREE DAYS. Max HRIndications: Daily Amount: 1 Chronic low back Patch. pain without sciatica, unspecified back pain laterality fentaNYL (DURAGESIC) Place 1 Patch 30 Patch 0 12/18/2018 Discontinued 75 MCG/HR onto skin EVERY 9 Transdermal PATCH 72 THREE DAYS. Max HRIndications: Daily Amount: Chronic low back 75 mcg. Code D pain without sciatica, unspecified back pain laterality documented as of this encounter (statuses as of 01/30/2019) Active Problems Problem Noted Date Stomach upset 11/02/2016 Degenerative disc disease, lumbar 11/02/2015 Primary osteoarthritis of left hip 11/02/2015 PAC (premature atrial contraction) 07/10/2013 Overview: Noted on exam and in kEKG 06/17 Sprain of lumbar region 04/02/2013 Depression 04/17/2012 Alzheimer's disease 04/17/2012 Overview: Diagnosed by Dr. Damon April 2012; Aricept started. Chronic low back pain 02/27/2012 Overview: Regular narcotic medication - Contract 10/15 BMI 30.0-30.9,adult 11/06/2011 Overview: This patient's BMI has been calculated and is above average, and BMI management plan is completed. . Diverticulitis of colon with perforation 10/17/2008 Overview: Diverticulitis, small bowel obstruction with colonic resection 1995 , status post appendectomy Status post hip replacement 10/17/2008 Overview: Right Replaced inactive diagnosis Essential hypertension 11/15/2004 documented as of this encounter (statuses as of 01/30/2019) Resolved Problems Problem Noted Date Resolved Date Mild cognitive impairment 02/27/2012 03/12/2015 documented as of this encounter (statuses as of 01/30/2019) Immunizations Name Administration Dates Next Due Influenza (IM) Preservative Free 03/11/2014, 03/21/2013, 02/27/2012, 02/15/2011 Influenza Vaccine High Dose 03/16/2015 PNEUMOCOCCAL POLYSACCHARIDE VACCINE 03/22/2011 Pneumococcal Conjugate(13 Valent) 10/09/2014 TDAP Vaccine 03/19/2010 documented as of this encounter Social History Tobacco Use Types Packs/Day Years Used Date Never Smoker Smokeless Tobacco: Never Used Alcohol Use Drinks/Week oz/Week Comments Yes 1 Glasses of wine 1.0 Sex Assigned at Date Recorded Not on file Job Start Date Occupation Industry Not on file Not on file Not on file Travel History Travel Start Travel End No recent travel history available. documented as of this encounter Last Filed Vital Signs Vital Sign Reading Time Taken Comments Blood Pressure 139/77 01/30/2019 2:57 PM EDT Pulse 80 01/30/2019 2:57 PM EDT Temperature - - Respiratory Rate - - Oxygen Saturation 92% 01/30/2019 2:57 PM EDT Inhaled Oxygen Concentration - - Weight 85.3 kg (188 lb) 01/30/2019 2:57 PM EDT Height 177.8 cm (5' 10") 01/30/2019 2:57 PM EDT Body Mass Index 26.98 01/30/2019 2:57 PM EDT documented in this encounter Progress Notes Mee Pink MD - 01/30/2019 3:00 PM EDT NAME:Gopi Avery [birth year] ENC Date: 01/30/2019 CC: Chief Complaint Patient [place] [facility] [place] Red[place] Fentanyl Gopi Avery is a 79-y.o. male accompanied by spouse Seen for change in mental status- Fentanyl reduced from 75 to 50 mcg - Is not in pain until gets up to walk- Bone on bone in his hip Current Outpatient Medications Medication Sig acetaminophen (TYLENOL) 325 MG Oral Tab Take 2 Tabs by mouth THREE TIMES DAILY NEEDED for Pain or Fever. Patient unable to identify need Indications : Fever, Pain acetaminophen (TYLENOL) 500 MG Oral Tab Take 2 Tabs by mouth TWO TIMES DAILY BEFORE MEALS. docusate sodium (DOCQLACE) 100 MG Oral Cap Take 1 Cap by mouth DAILY. fentaNYL (DURAGESIC) 50 MCG/HR Transdermal PATCH [address] 1 Patch onto skin EVERY THREE DAYS. Max Daily Amount: 1 Patch. Incontinence Supply Disposable (PROCARE ADULT BRIEFS LARGE) Does not apply Misc 1 Each by Does not apply route DIRECTED. lisinopril (PRINIVIL, ZESTRIL) 10 MG Oral Tab Take 1 Tab by mouth DAILY. sertraline (ZOLOFT) 100 MG Oral Tab Take 0.5 Tabs by mouth DAILY. sertraline (ZOLOFT) 50 MG Oral Tab Take 1 Tab by mouth DAILY. therapeutic multivitamin (THERAGRAN-M) Oral Tab Take 1 Tab by mouth DAILY. Vitamins A & D (BABY VITAMIN A & D) Apply externally Ointment 1 Dose by Apply externally route DAILY NEEDED (as needed). Vitamins A & D (BABY VITAMIN A & D) Apply externally Ointment 1 Dose by Apply externally route DAILY NEEDED (as needed). Wound Dressings (TEGADERM MATRIX DRESSING) Apply externally Pads 1 Each by Apply externally route EVERY THREE DAYS. Apply over Fentanyl patch every 3 days No current facility-administered medications for this visit. Patient Active Problem List Diagnosis Date Noted Stomach upset 11/02/2016 Degenerative disc disease, lumbar 11/02/2015 Primary osteoarthritis of left hip 11/02/2015 PAC (premature atrial contraction) 07/10/2013 Noted on exam and in kEKG 06/17 Sprain of lumbar region 04/02/2013 Depression 04/17/2012 Alzheimer's disease 04/17/[address] Damon April 2012; Aricept started. Chronic low back pain 02/27/2012 Regular narcotic medication - Contract 10/15 BMI 30.0-30.9,adult 11/06/2011 This patient's BMI has been calculated and is above average, and BMI management plan is completed. . Diverticulitis of colon with perforation 10/17/2008 Diverticulitis, small bowel obstruction with colonic resection 1995 , status post appendectomy Status post hip replacement 10/17/2008 Right Replaced inactive diagnosis Essential hypertension 11/15/2004 Family History Problem Relation Age of Onset Cancer Mother breast Heart Father No cardiopulmonary symptoms No upper or lower GI complaints No urinary tract symptoms. No bruising/ bleeding. No neurological complaints . No insomnia.+ . Social History Tobacco Use Smoking status: Never Smoker Smokeless tobacco: Never Used Substance Use Topics Alcohol use: Yes Alcohol/week: 1.0 standard drinks Types: 1 Glasses of wine per week Drug use: No OBJECTIVE: BP 139/77 | Pulse 80 | Ht 5' 10" (1.778 m) | Wt 188 lb (85.3 kg) | SpO2 92% | BMI 26.98 kg/m . Heent neg Neck no JVD, thyromegaly or bruit Lungs Clear CV rrr Abd soft, nontender, no organomegaly Ext no edema; no lesions; pulses intact Neuro: intellect intact ; motor including gait unremarkable A/P ICD-9-CM ICD-10-CM 1. Chronic low back pain without sciatica, unspecified back pain laterality 724.2 M54.5 338.29 G89.29 2. Alzheimer's dementia without behavioral disturbance, unspecified timing of dementia onset 331.0 G30.9 294.10 F02.80 There are no Patient Instructions on file for this visit. AUTHOR: Mee Pink MD 15:38 01/30/2019 documented in this encounter Plan of Treatment Date Type Specialty Care Team Description 02/18/2019 Office Visit Internal Medicine Mee Pink MD [address] [place] [address] [phone] 04/14/2019 Office Visit Internal Medicine Mee Pink MD [address] [place] [address] [phone] Health Maintenance Due Date Last Done Comments ZOSTER IMMUNIZATION SERIES (1 01/29/1988 of 2) MEDICARE ANNUAL WELLNESS VISIT 04/14/2017 04/14/2016, 03/12/2015 (Previously completed), 03/22/2011 DEPRESSION SCREENING 03/22/2019 03/22/2018 FALL RISK ASSESSMENT 03/22/2019 03/22/2018, 03/22/2018 PNEUMOCOCCAL 65+YRS Completed 10/09/2014, 03/22/2011 HPV IMMUNIZATION SERIES Aged Out No longer eligible based on patient's age to complete this topic MENINGOCOCCAL VACCINE IMM Aged Out No longer eligible based on patient's age to complete this topic documented as of this encounter Goals Goal Patient Goal Associated Recent Patient-Stated? Author Type Problems Progress Blood Pressure Blood Pressure 139/77 No Joesph, < 150/90 (01/30/2019 MD Mee 2:57 PM EDT) Note: This is an individualized treatment (blood pressure) goal for Gopi Avery: Displayed above (on the left) is your goal for blood pressure control. Your most recent blood pressure is also shown above, on the right. You should try to achieve blood pressures that are lower than your goal listed above (on the left). Depression screen (PHQ-9) total score < 5 Depression No Mee Pink MD Note: This is an individualized treatment (depression) goal for Gopi Avery: Displayed above is your goal for a depression screening (PHQ-9) score that would indicate good control of your depression. Keep a regular sleep schedule Lifestyle No Mee Pink MD Note: This is an individualized lifestyle goal for Gopi Avery: Please maintain a regular sleep schedule. This may help with some symptoms of depression. Take all prescribed medications as directed Self-management No Mee Pink MD Note: This is an individualized self-management goal for Gopi Avery: Please take all prescribed medications as directed. 1. Do not skip doses. If you cannot afford your medications, talk with your doctor. 2. Use a pill reminder system such as a pill box if needed. Your pharmacist can help you with this. 3. Contact your Pharmacy 5 days before your medication runs out. If you cannot take your medications for any reasons, talk with your doctor. 4. Please bring all of your medication bottles and inhalers (or a list of all your medications/inhalers) with you to every visit. Potential barriers to meeting all of your care plan goals will continue to be addressed on an ongoing basis. documented as of this encounter Results Not on filedocumented in this encounter Visit Diagnoses Diagnosis Chronic low back pain without sciatica, unspecified back pain laterality - Primary Alzheimer's dementia without behavioral disturbance, unspecified timing of dementia onset documented in this encounter Insurance Payer Benefit Plan / Subscriber ID Effective Phone Address Type Group Dates COMMERCIAL COMMERCIAL xxxxxxxxx Effective for Commercial GENERIC GENERIC PLAN all dates MEDICARE MEDICARE PART A xxxxxxxxxxx 2003-Pres Medicare & B nt documented as of this encounter
--- NOTE | 2019-02-03 12:20 | ED ---
Lower Extremity - HPI Summary HPI Summary: Patient is an 79-year-old male presenting to the ED with right hip pain. As EMS were at [facility] picking up another patient, there was a witnessed fall with the patient attempting to ambulate, falling down onto the right hip. Denies any pain currently. EMS states there was no shortening or signs of trauma to the leg. He takes no anticoagulation medications. History includes hypertension. - History of Current Complaint Chief Complaint: EDHipPelvisInjury Stated Complaint: HIP PAIN AFTER FALL PER EMS Time Seen by Provider: 02/03/19 11:40 Hx Obtained From: Patient, Family/Food Products Tester Mechanism Of Injury: Blunt Trauma Pain Intensity: 4 Pain Scale Used: 0-10 Numeric Timing: Constant Location: Is Discrete @ - right lateral hip/ 10 Character Of Pain: Aching Associated Signs And Symptoms: Positive: Negative. Negative: Swelling, Redness , Bruising Aggravating Factor(s): Standing, Ambulation Alleviating Factor(s): Rest Able to Bear Weight: No - Risk Factors Gout Risk Factors: Negative DVT Risk Factors: Negative Septic Arthritis Risk Factor: Negative - Allergies/Home Medications Allergies/Adverse Reactions: Allergies Allergy/AdvReac Type Severity Reaction Status Date / Time duloxetine Allergy Unknown Verified 02/03/19 12:46 Reaction Details hydrocodone Allergy Itching Verified 02/03/19 12:46 meperidine Allergy Rash Verified 02/03/19 12:46 propoxyphene Allergy Unknown Verified 02/03/19 12:46 Reaction Details PMH/Surg Hx/FS Hx/Imm Hx Previously Healthy: Yes Endocrine/Hematology History: Denies: Hx Diabetes Cardiovascular History: Reports: Hx Hypertension, Other Cardiovascular Problems/ Disorders - Hx HTN Denies: Hx Angina, Hx Pacemaker/ICD GI History: Reports: Hx Hiatal Hernia, Hx Obstructive Bowel - x2, Hx Ileostomy - reversed, Other GI Disorders - GI RESECTION WITH COLOSTOMY IN PAST History: Reports: Hx Kidney Stones, Other Problems/Disorders - Hx kidney stones Musculoskeletal History: Reports: Hx Arthritis, Hx Back Problems, Hx Scoliosis, Other Musculoskeletal History - lower back problem Denies: Hx Bursitis, Hx Congenital Bone Abnormalities, Hx Fibromyalgia, Hx Gout, Hx Orthopedic Injury, Hx Osteoporosis, Hx Tendonitis Sensory History: Reports: Hx Contacts or Glasses - reading, Hx Hearing Problem Denies: Hx Cataracts, Hx Glaucoma, Hx Macular Degeneration, Hx Deafness, Hx Hearing Aid Opthamlomology History: Reports: Hx Contacts or Glasses - reading Denies: Hx Cataracts, Hx Glaucoma, Hx Macular Degeneration Neurological History: Reports: Hx Dementia, Hx Headaches, Hx Migraine, Hx Transient Ischemic Attacks (TIA) Denies: Hx Nerve Disease, Hx Seizures, Hx Spinal Cord Injury Psychiatric History: Reports: Hx Anxiety, Hx Depression Denies: Hx Panic Disorder - Surgical History Surgery Procedure, Year, and Place: Colectomy w/ colostomy and reversal 12 yrs ago, appendectomy, double hernia repair as , tonsillectomy x2, bowel obstruction June Right hip replacement 15years ago Hx Anesthesia Reactions: No - Immunization History Date of Tetanus Vaccine: Unknown Date of Influenza Vaccine: 2011 Hx Pertussis Vaccination: No Immunizations Up to Date: Yes Infectious Disease History: No Infectious Disease History: Denies: Traveled Outside the [place] in Last 30 Days - Family History Known Family History: Positive: Other Family History: Positive for diverticulitis and heart failure per EMR - Social History Occupation: Employed Full-time Lives: With Family - breathing Alcohol Use: None Alcohol Amount: glass of wine weekly Hx Substance Use: No Substance Use Type: Reports: None Hx Tobacco Use: No Smoking Status (MU): Never Smoked Tobacco Review of Systems Constitutional: Negative Negative: Fever, Chills, Fatigue, Skin Diaphoresis Negative: Palpitations, Chest Pain Negative: Shortness Of Breath, Cough Genitourinary: Negative Positive: no symptoms reported, see HPI Positive: Arthralgia - right hip pain. Negative: Myalgia Negative: Rash, Bruising Neurological: Negative All Other Systems Reviewed And Are Negative: Yes Physical Exam Triage Information Reviewed: Yes Vital Signs On Initial Exam: Initial Vitals Temp Pulse Resp BP Pulse Ox 97.6 F 52 20 116/72 96 02/03/19 11:43 02/03/19 11:43 02/03/19 11:43 02/03/19 11:43 02/03/19 11:43 Vital Signs Reviewed: Yes Appearance: Positive: Well-Appearing, Well-Nourished Skin: Positive: Warm, Skin Color Reflects Adequate Perfusion Head/Face: Positive: Normal Head/Face Inspection Eyes: Positive: EOMI, MAGGI, Conjunctiva Clear Neck: Positive: Supple, No Lymphadenopathy Respiratory/Lung Sounds: Positive: Clear to Auscultation, Breath Sounds Present Cardiovascular: Positive: RRR, Pulses are Symmetrical in both Upper and Lower Extremities Musculoskeletal: Positive: Pain @ - right lateral hip pain Neurological: Positive: Speech Normal Psychiatric: Positive: Normal, Affect/Mood Appropriate AVPU Assessment: Alert Diagnostics - Vital Signs Vital Signs Temp Pulse Resp BP Pulse Ox 02/03/19 11:43 97.6 F 52 20 116/72 96 - Laboratory Result Diagrams: 02/03/19 12:24 02/03/19 12:33 Lab Statement: Any lab studies that have been ordered have been reviewed, and results considered in the medical decision making process. Lower Extremity Course/Dx - Course Course Of Treatment: On physical examination, the patient appears well, offering no complaints and denies any pain. Palpation of the bilateral hips, there is noted pain to the right lateral hip without pain to the groin or femur otherwise. Denies any pain to the knee, ankle or foot. Flexion and extension of the foot maintained. Patient is unable to flex at the hip due to discomfort. He does not take anticoagulation medications. X-ray obtained which shows a periprosthetic femur fracture. Discussed case with Dr. Rivera who will consult. Discussed case with Dr. Blackman who will admit for further workup. Labs and EKG ordered and are pending following admission. - Diagnoses Provider Diagnoses: Laura-prosthetic femoral shaft fracture Discharge ED - Sign-Out/Discharge Documenting (check all that apply): Patient Departure Patient Received Moderate/Deep Sedation with Procedure: No - Discharge Plan Condition: Fair Disposition: ADMITTED TO [facility] Referrals: Mee Pink MD [Primary Care Provider] - - Billing Disposition and Condition Condition: FAIR Disposition: Admitted to [facility]
[2019-02-03 12:43] LABS: ABS Eosinophils 0.1 10^3/ul (0-0.6); ABS Lymphocytes 0.8 10^3/ul (1.0-4.8); ABS Monocytes 0.5 10^3/ul (0-0.8); ABS Neutrophils 6.2 10^3/ul (1.5-7.7); Eosinophil % 1.1 %; Hematocrit 47 % (42-52); Hemoglobin 16.1 g/dL (14.0-18.0); Mean Corpuscular HGB Conc 34 g/dL (31-36); Mean Corpuscular Hemoglobin 35 pg (27-31); Mean Corpuscular Volume 100 fL (80-94); Nucleated Red Blood Cells % 0.1; Platelet Count 180 10^3/uL (150-450); Red Blood Count 4.66 10^6 /uL (4.18-5.48); Red Cell Distribution Width 13 % (10-15); White Blood Count 7.7 10^3/uL (3.5-10.8)
[2019-02-03 12:52] LABS: INR 1.05 (0.82-1.09)
[2019-02-03 12:57] LABS: Albumin 4.3 g/dL (3.2-5.2); Albumin/Globulin Ratio 1.5 (1-3); BUN/Creatinine Ratio 25.8 (8-20); Calcium 9.8 mg/dL (8.6-10.3); EGFR African American 89.9 (>60); EGFR Non-African American 74.3 (>60); Globulin 2.9 g/dL (2-4); Potassium 4.4 mmol/L (3.5-5.0); Total Bilirubin 0.7 mg/dL (0.2-1.0); Total Protein 7.2 g/dL (6.4-8.9)
--- NOTE | 2019-02-03 14:22 | CONS ---
ORTHOPEDIC CONSULTATION NOTE: DATE OF CONSULT: 02/03/19 LOCATION: Emergency room. Thank you for this orthopedic consultation. CHIEF COMPLAINT: Right hip pain. HISTORY OF PRESENT ILLNESS: Mr. Avery is an 79-year-old male with Alzheimer dementia who is a reside nt of [place]. He had a witnessed fall today when he was ambulating incorrectly with his walker, he fell onto his right side. He reported 6/10 pain in the right hip, was unable to stand or ambulate. He was brought to [facility] and noted to have a right hip periprosthetic fracture. The patient reportedly had right total hip arthroplasty at [facility] [address] Stacie Romero. PAST MEDICAL HISTORY: Alzheimer disease, diastolic heart failure, chronic low back pain, osteoarthri tis, hypertension, urolithiasis, diverticulitis, GERD, status post colostomy and reversal colostomy. PAST SURGICAL HISTORY: Two small bowel surgeries for diverticulitis, colostomy with reversal, append ectomy, hernia repair, right total hip arthroplasty. HOME MEDICATIONS: 1. Levitra 10 mg daily p.r.n. 2. Multivitamin 1 tablet p.o. daily. 3. Zoloft 100 mg p.o. daily. 4. Prilosec 20 mg p.o. daily. 5. Lisinopril 10 mg p.o. daily. 6. Fentanyl patch 75 mcg every 3 days. 7. Docusate 100 mg p.o. daily. 8. Aspirin 81 mg p.o. daily. ALLERGIES: HYDROCODONE/ACETAMINOPHEN, PIGMENT BLUE 63, CYMBALTA, DEMEROL, DARVOCET. HYDROCODONE all ergy is confusion. FAMILY HISTORY: Negative. SOCIAL HISTORY: The patient lives at [place]. His is in town. No tobacco, alcohol, or recrea tional drugs. Normally ambulates with a walker. REVIEW OF SYSTEMS: Fourteen systems reviewed. Positive for the recent fall and right hip pain. Pos itive for memory loss. Negative for fevers, chills, chest pain, shortness of breath, nausea, vomitin g, headache, or dizziness. PHYSICAL EXAM: Vitals: Temperature 97.6, pulse 52, blood pressure 116/72. General: The patient is a well-nourished male, in no apparent distress, accompanied by a supportive , alert and oriented to person only, pleasant mood, appropriate affect. Gait is not assessed. HEENT: Atraumatic, normoc ephalic. Pupils are equal and reactive to light. Neck: Trachea midline. Neck is supple. No palpabl e lymph nodes. Heart: S1 and S2. Lungs: Scattered wheezes in all lung smith. Abdomen: Soft, no ntender, nondistended. Bowel sounds in 4 quadrants. Bilateral upper extremities: Some scattered bru ising. Skin is intact. He can forward flex his shoulders bilaterally to 100 degrees without any zhao n. No obvious bony crepitus or deformity. 2+ palpable radial pulses. Right lower extremity: Tender ness along the right thigh. He is sitting comfortably. The leg is not shortened distally. Positive dorsiflexion and plantarflexion, 4+/5 strength, full sensation to light touch in all nerve distribut ions, and 2+ palpable DP pulse. Left lower extremity: The patient's skin is intact. No abrasions or open wounds. No palpable masses or lymph nodes. Hip flexion to 90 degrees without pain. Distally, n eurovascularly intact. DIAGNOSTIC STUDIES: Labs show white blood cells 7.7, hematocrit 47, platelets 180. INR 1.05. Sodium 138, potassium 4.4, chloride 105, BUN and creatinine 25/0.97. Studies: Radiographs of the right hip show periprosthetic femur fracture. The femoral head is reduc ed in the acetabulum. There is some periprosthetic osteolysis around the acetabulum. Chest x-ray by radiology report shows: 1. No active cardiopulmonary disease. 2. Hiatal hernia is noted. ASSESSMENT AND PLAN: Mr. Gopi Avery is an 79-year-old resident of [place] with dementia, who had a fall earlier today. He did sustain a right femoral periprosthetic fracture. The patient, his daughter, and I discussed operative and nonoperative treatment options. If he does proceed with nonoperative care, the likelihood of him ambulating again without significant pain is lo w. I am unsure whether he would be able to ambulate at all. Operative care, I expressed I would not be able to give a definite operative plan. Minimal intervention would be cables around the fracture and stem. If the stem was found to be loose, however, this would require revision of the femoral st em to a long uncemented implant and multiple cables, possible plate and screws. We briefly discussed the risks and benefits of operative and nonoperative care. The patient's 's main concern is jaciel t he would be unlikely to follow any kind of postoperative restrictions such as weightbearing restric tions or posterior hip precautions. This would certainly put the chance of surgical success and heal ing at a much lower rate. The patient's family would like to discuss surgery. They are leaning away from surgical intervention . For now, he can have a diet and I will see him in the morning to further discuss. I would like a CT s can of the right femur to better evaluate the fracture. Orthopedics will be glad to follow. [id number] #: [id number]
[2019-02-03] MEDS ORDERED: Ondansetron INJ* 2 MG/ML VIAL IV PRN (15:35)
[2019-02-03] MEDS: Morphine INJ* 2 MG/ML 1 ML SYRINGE (TWO MG - NEW SYRINGE VERSION) IV PRN ×2 (17:30→23:37)
[2019-02-03] MEDS: Calcium Carbonate CHEW TAB* 500 MG (TUMS) PO SCH ×2 (17:30→23:36)
[2019-02-03] MEDS: fentaNYL PATCH 50 MCG/HR TRANSDERM SCH (17:35)
--- NOTE | 2019-02-03 18:36 | HP ---
CC: Dr. Mee Pink; Dr. Juliet Blackman; Dr. Damaris Rivera* ADMISSION HISTORY AND PHYSICAL: DATE OF ADMISSION: 02/03/19 PRIMARY CARE PROVIDER: Dr. Mee Pink. MY ATTENDING WHILE IN THE HOSPITAL: Dr. Juliet Blackman* (dictated by LEDON Sales). CONSULTING ORTHOPEDIST: Dr. Damaris Rivera. CHIEF COMPLAINT: Fall, right hip pain. HISTORY OF PRESENT ILLNESS: Mr. Avery is an 79-year-old male with past medical history significant for Alzheimer's; heart failure with preserved ejection fraction, not in acute exacerbation, who presents to the emergency department after he was either getting out of the elevator or walking upstairs depending on his report versus EMS report when he tripped, fell on his right hip, did not hit his head, did not lose consciousness, did not feel any symptoms before he fell. He has been feeling well recently except for 1 episode of oversedation from his fentanyl patch, which was recently decreased. The patient denies fevers, chills, abdominal pain, dysuria. The patient has significant osteoarthritis, pain in his left hip and has a prosthesis of his right hip. The patient denies chest pain, shortness of breath. The patient has not had any decreased exercise tolerance. The patient has no functional deficits at this time. The patient does use a walker. The patient is able to walk up 1 flight of stairs without getting short of breath. The patient has not recently passed out. The patient has no abdominal pain, diarrhea. The patient in the emergency department was found to have a right periprosthetic hip fracture and will be admitted to the hospital for pain control and possible surgical intervention. PAST MEDICAL HISTORY: Alzheimer's disease, heart failure with preserved ejection fraction, hypertension, low back pain, urolithiasis, diverticulitis, GERD. PAST SURGICAL HISTORY: Bowel resection for diverticulitis, colostomy/reversal, appendectomy, bowel resection for small bowel obstruction, right hip replacement. MEDICATIONS: 1. Fentanyl patch 50 mcg daily. 2. Tylenol 1000 mg p.o. b.i.d. with meals. 3. Lisinopril 10 mg p.o. daily. 4. Multivitamin 1 tab p.o. daily. 5. Tylenol 650 mg p.o. t.i.d. as needed. 6. Docusate 100 mg p.o. daily. 7. Imodium 2 mg p.o. daily as needed. 8. Calcium carbonate 1000 mg p.o. q.6 hours. 9. Sertraline 50 mg p.o. daily. ALLERGIES: DULOXETINE, HYDROCODONE, MEPERIDINE, PROPOXYPHENE. FAMILY HISTORY: The patient's father of [place]. The patient's mother old age. The patient has 2 siblings, who are healthy. SOCIAL HISTORY: The patient smoked small amount very remotely. The patient also drank very remotely and used marijuana remotely. 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 The patient is and has 8 biological children and stepchildren, none of whom were with his current , whose name is Anusha Avery, who will be his surrogate decision maker. REVIEW OF SYSTEMS: A 14-point review of systems was reviewed and is negative except as above in the HPI. PHYSICAL EXAMINATION GENERAL: The patient is an 79-year-old male, who appears stated age and sitting comfortably in bed, in no acute distress. VITAL SIGNS: At the time of evaluation, temperature 97.6, pulse rate of 82, respiratory rate 20, oxygen saturation 93% on room air, blood pressure 149/85. HEENT: Head: Normocephalic and atraumatic. Sclerae anicteric. No conjunctival injection. Nasal mucosa moist. Oral mucosa moist. No pharyngeal erythema, discharge or exudate. NECK: Supple, nontender. No lymphadenopathy. No carotid bruits auscultated. No JVD. RESPIRATORY: Clear to auscultation bilaterally. No wheezes, rales, or rhonchi. Good air exchange bilaterally. CARDIAC: Regular rate and rhythm. No clicks, murmurs, gallops, or rubs. Pulses are 2+ in the bilateral dorsalis pedis, posterior tibialis, and radial areas. ABDOMEN: Soft, nontender, nondistended. Bowel sounds present and normoactive in all 4 quadrants. No hepatosplenomegaly. No abdominal bruits auscultated. No hepatojugular reflux. GENITOURINARY: No suprapubic or CVA tenderness. MUSCULOSKELETAL: Left calf nontender, harder than right calf. No ecchymosis or deformity. Right lower extremity longer than left lower extremity. NEURO: Cranial nerves II through XII grossly intact. No focal deficits. Alert and oriented x3. Very forgetful. PSYCHIATRIC: Pleasant and cooperative. SKIN: Clean, dry, and intact. No rash. DIAGNOSTIC STUDIES/LAB DATA: White blood cell count 7.7, hemoglobin 16.1, hematocrit 47, platelet count 180. INR 1.05. Sodium 138, potassium 4.4, chloride 105, carbon dioxide 26, anion gap 7, BUN 25, creatinine 0.97, BUN-to- creatinine ratio 25.8, glucose 118, calcium 9.8. Bilirubin 0.7, AST 17, ALT 20 , alkaline phosphatase 54. Protein 7.2, albumin 2.3, globulin 2.9. Studies: Hip and pelvis x-ray read as periprosthetic fracture of the right proximal femur, minimal displacement is noted. Chest x-ray read as no active cardiopulmonary disease. Electrocardiogram shows normal sinus rhythm. No ST segment elevation or depression. Left axis deviation. No hypertrophy or enlargement. Rate of 75, QTc of 377. Compared to previous exam, there are no significant changes. ASSESSMENT AND PLAN: Impression: Mr. Avery is an 79-year-old male with past medical history significant for Alzheimer's and heart failure with preserved ejection fraction, who presents to the emergency department after a mechanical fall and was found to have a right periprosthetic hip fracture. The patient will be admitted to the hospital for pain control, supportive care and possible surgical intervention. 1. Right-sided periprosthetic hip fracture. The patient will be on bedrest at this time. The patient was seen in consultation by Dr. Damaris Rivera, who discussed the surgical and nonsurgical options with the patient and his family. Both the patient and his family would like to discuss overnight his options and we will reassess in the morning. The patient will have morphine, oxycodone , and Tylenol for pain control. Until then, the patient will be on bedrest. The patient will be able to have a diet. The patient's heart failure is not exacerbated at this time. The patient has an RCRI of 1 and is capable for greater than 4 METs. The patient has, per his RCRI, a 6.0% 30-day risk of , myocardial infarction, or cardiac arrest. The patient's EKG is normal. The patient has no indication that he has newly decreased ejection fraction, decompensated heart failure, has not had a myocardial infarction or other event that would necessitate further cardiac testing. The patient is at this time medically optimized for surgery. 2. Heart failure with preserved ejection fraction. The patient is currently not in exacerbation. The patient is currently euvolemic. The patient needs neither fluids nor diuretics. We will monitor the patient's weight and have strict intake and output. 3. Alzheimer's disease. Supportive care. Avoid medications known to cause delirium. 4. Hypertension. Continue the patient's lisinopril. Hold this perioperatively. The patient is currently normotensive. 5. FEN: The patient will have a heart-healthy diet without caffeine and fluids are not indicated at this time. TIME SPENT: Approximately 60 minutes was spent on the admission of this patient , 30 of which was spent [id number] with the patient obtaining history and physical and discussing treatment plan. This plan was discussed with my attending, Dr. Juliet Blackman, and she is in agreement. ELDON SALES [id number]/[facility] #: [id number] SUPA
[2019-02-03] MEDS: fentaNYL Patch Check Q Shift 1 NOTE FOLLOW UP SCH (19:06)
[2019-02-03] MEDS: Acetaminophen TAB* 325 MG PO PRN (20:32)
[2019-02-03] MEDS: oxyCODONE TAB* 5 MG TAB PO PRN (20:33)
[2019-02-03] MEDS: Heparin VIAL(*) 5000 UNITS/ML VIAL (FIVE THOUSAND) SUBCUT SCH (20:34)
[2019-02-04] MEDS: oxyCODONE TAB* 5 MG TAB PO PRN ×2 (03:24→17:21)
[2019-02-04 05:11] LABS: ABS Eosinophils 0.1 10^3/ul (0-0.6); ABS Lymphocytes 1.5 10^3/ul (1.0-4.8); ABS Monocytes 0.9 10^3/ul (0-0.8); ABS Neutrophils 7.6 10^3/ul (1.5-7.7); Eosinophil % 0.6 %; Hematocrit 43 % (42-52); Hemoglobin 14.8 g/dL (14.0-18.0); Lymphocyte % 14.9 %; Mean Corpuscular HGB Conc 35 g/dL (31-36); Mean Corpuscular Hemoglobin 35 pg (27-31); Mean Corpuscular Volume 100 fL (80-94); Mean Platelet Volume 7.9 fL (7.4-10.4); Platelet Count 173 10^3/uL (150-450); Red Blood Count 4.25 10^6 /uL (4.18-5.48); Red Cell Distribution Width 13 % (10-15); White Blood Count 10.1 10^3/uL (3.5-10.8)
[2019-02-04 05:23] LABS: BUN/Creatinine Ratio 24.8 (8-20); Calcium 9.7 mg/dL (8.6-10.3); EGFR African American 85.8 (>60); EGFR Non-African American 70.9 (>60); Magnesium 2.2 mg/dL (1.9-2.7); Potassium 3.9 mmol/L (3.5-5.0)
[2019-02-04] MEDS: Calcium Carbonate CHEW TAB* 500 MG (TUMS) PO SCH ×2 (06:05→12:59)
[2019-02-04] MEDS: Heparin VIAL(*) 5000 UNITS/ML VIAL (FIVE THOUSAND) SUBCUT SCH ×3 (06:06→21:43)
[2019-02-04] MEDS: fentaNYL Patch Check Q Shift 1 NOTE FOLLOW UP SCH ×2 (07:09→18:23)
[2019-02-04] MEDS: Multivitamins/Minerals TAB PO SCH (09:41)
[2019-02-04] MEDS: Sertraline* 50 MG TAB PO SCH (09:41)
[2019-02-04] MEDS: Docusate CAP* 100 MG PO SCH (09:41)
[2019-02-04] MEDS: Lisinopril TAB* 10 MG PO SCH (09:51)
[2019-02-04] MEDS ORDERED: Lorazepam PYXIS KEY PRN (10:54)
--- NOTE | 2019-02-04 12:32 | PN ---
Progress Note - Progress Note Date of Service: 02/04/19 SOAP: Subjective: []Pt seen at bedside. He is comfortable at rest. Denies CP, SOB, dizziness, nausea. Pain is localized to right hip, exacerbated by movement and comfortable at rest. Objective: []Gen: Appears well, NAD RLE: RLE skin envelope intact, tender over right hip. Thigh soft. DF/PF intact, DP+, sensation intact to light touch distally Calves supple and nontender without erythema, edema or palpable cords BL UE skin envelope intact, nontender to palpation, active f/e digits, wrists, elbows and shoulders without pain. Assessment: [] Periprosthetic fracture right femur Plan: []NWB RLE Bedrest Chemical and mechanical DVT prophy. He should be NPO and Heparin to be held at midnight prior to surgery - hold Sunday night with anticipated OR He is medically optimized for surgery Operative vs nonoperative treatment options offered. Patient and agree to proceed with surgical intervention for R periprosthetic femur fracture. Vital Signs Temp 98.0 F 02/04/19 11:39 Pulse 87 02/04/19 11:39 Resp 18 02/04/19 11:39 BP 96/64 02/04/19 11:39 Pulse Ox 93 02/04/19 11:39 Intake & Output 02/03/19 02/04/19 02/04/19 18:59 06:59 18:59 Intake Total 0 0 240 Balance 0 0 240 Weight 184 lb 3.2 oz 180 lb 8 oz Intake: Oral 0 0 240 Other: Estimated Void Medium # Bowel Movements 0 # Voids 3 Laboratory Last Values WBC 10.1 10^3/uL (3.5-10.8) 02/04/19 04:55 RBC 4.25 10^6 /uL (4.18-5.48) 02/04/19 04:55 Hgb 14.8 g/dL (14.0-18.0) 02/04/19 04:55 Hct 43 % (42-52) 02/04/19 04:55 MCV 100 fL (80-94) H 02/04/19 04:55 MCH 35 pg (27-31) H 02/04/19 04:55 MCHC 35 g/dL (31-36) 02/04/19 04:55 RDW 13 % (10-15) 02/04/19 04:55 Plt Count 173 10^3/uL (150-450) 02/04/19 04:55 MPV 7.9 fL (7.4-10.4) 02/04/19 04:55 Neut % (Auto) 75.2 % 02/04/19 04:55 Lymph % (Auto) 14.9 % 02/04/19 04:55 [place] % (Auto) 9.0 % 02/04/19 04:55 Eos % (Auto) 0.6 % 02/04/19 04:55 Baso % (Auto) 0.3 % 02/04/19 04:55 Absolute Neuts (auto) 7.6 10^3/ul (1.5-7.7) 02/04/19 04:55 Absolute Lymphs (auto) 1.5 10^3/ul (1.0-4.8) 02/04/19 04:55 Absolute Monos (auto) 0.9 10^3/ul (0-0.8) H 02/04/19 04:55 Absolute Eos (auto) 0.1 10^3/ul (0-0.6) 02/04/19 04:55 Absolute Basos (auto) 0.0 10^3/ul (0-0.2) 02/04/19 04:55 Absolute Nucleated RBC 0.0 10^3/ul 02/04/19 04:55 Nucleated RBC % 0.0 02/04/19 04:55 INR (Anticoag Therapy) 1.05 (0.82-1.09) 02/03/19 12:24 Sodium 138 mmol/L (135-145) 02/04/19 04:55 Potassium 3.9 mmol/L (3.5-5.0) 02/04/19 04:55 Chloride 105 mmol/L (101-111) 02/04/19 04:55 Carbon Dioxide 28 mmol/L (22-32) 02/04/19 04:55 Anion Gap 5 mmol/L (2-11) 02/04/19 04:55 BUN 25 mg/dL (6-24) H 02/04/19 04:55 Creatinine 1.01 mg/dL (0.67-1.17) 02/04/19 04:55 Est GFR ( Amer) 85.8 (>60) 02/04/19 04:55 Est GFR (Non-Af Amer) 70.9 (>60) 02/04/19 04:55 BUN/Creatinine Ratio 24.8 (8-20) H 02/04/19 04:55 Glucose 116 mg/dL (70-100) H 02/04/19 04:55 Calcium 9.7 mg/dL (8.6-10.3) 02/04/19 04:55 Magnesium 2.2 mg/dL (1.9-2.7) 02/04/19 04:55 Total Bilirubin 0.70 mg/dL (0.2-1.0) 02/03/19 12:33 AST 17 U/L (13-39) 02/03/19 12:33 ALT 20 U/L (7-52) 02/03/19 12:33 Alkaline Phosphatase 54 U/L (34-104) 02/03/19 12:33 Total Protein 7.2 g/dL (6.4-8.9) 02/03/19 12:33 Albumin 4.3 g/dL (3.2-5.2) 02/03/19 12:33 Globulin 2.9 g/dL (2-4) 02/03/19 12:33 Albumin/Globulin Ratio 1.5 (1-3) 02/03/19 12:33
--- NOTE | 2019-02-04 12:32 | PN ---
Subjective Date of Service: 02/04/19 Interval History: Patient is feeling well today. Patient was very agitated overnight. Patient denies F/C, N/V, abdominal pain, diarrhea, dysuria, or other pain. Patient's is very concerned about the discomfort associated with surgery and wants a comfort based approach. Discussed options with the patient's at length and she is now amenable to surgery. Family History: Unchanged from Admission Social History: Unchanged from Admission Past Medical History: Unchanged from Admission Objective Active Medications: Acetaminophen (Tylenol Tab*) 650 mg PO Q6H PRN PRN Reason: MILD PAIN or TEMP > 100.4 Last Admin: 02/03/19 20:32 Dose: 650 mg Calcium Carbonate (Tums*) 1,000 mg PO Q6HR [facility] Last Admin: 02/04/19 06:05 Dose: 1,000 mg Docusate Sodium (Colace Cap*) 100 mg PO DAILY [facility] Last Admin: 02/04/19 09:41 Dose: 100 mg Fentanyl (Duragesic Patch 50 Mcg/Hr*) 50 mcg TRANSDERM Q72H [facility] Last Admin: 02/03/19 17:35 Dose: 50 mcg Heparin Sodium (Porcine) (Heparin Vial(*)) 5,000 units SUBCUT Q8HR [facility] Last Admin: 02/04/19 06:06 Dose: 5,000 units Lisinopril (Prinivil Tab*) 10 mg PO DAILY [facility] Last Admin: 02/04/19 09:51 Dose: 10 mg Lorazepam (Ativan Inj*) 1 mg IV PUSH BEDTIME PRN PRN Reason: AGITATION Miscellaneous (Ativan Pyxis Marx) 1 ea N/A .ATIVAN IV MARX PRN PRN Reason: PYXIS MARX Morphine Sulfate (Morphine Inj (Syringe))*) 2 mg IV Q4H PRN PRN Reason: PAIN - SEVERE Last Admin: 02/03/19 23:37 Dose: 2 mg Multivitamins/Minerals (Theragran/Minerals Tab*) 1 tab PO DAILY [facility] Last Admin: 02/04/19 09:41 Dose: 1 tab Ondansetron HCl (Zofran Inj*) 4 mg IV Q6H PRN PRN Reason: NAUSEA Oxycodone HCl (Roxycodone Tab*) 5 mg PO Q6H PRN PRN Reason: PAIN - MODERATE Last Admin: 02/04/19 03:24 Dose: 5 mg Pharmacy Profile Note (Fentanyl Patch Check Q Shift) 1 note FOLLOW UP 0700, 1900 [facility] Last Admin: 02/04/19 07:09 Dose: 1 note Sertraline HCl (Zoloft*) 50 mg PO DAILY [facility] Last Admin: 02/04/19 09:41 Dose: 50 mg Vital Signs - 8 hr 02/04/19 02/04/19 02/04/19 05:18 07:50 08:00 Temperature 97.3 F Pulse Rate 79 Respiratory 16 18 16 Rate Blood Pressure 113/82 (mmHg) O2 Sat by Pulse 92 Oximetry 02/04/19 11:39 Temperature 98.0 F Pulse Rate 87 Respiratory 18 Rate Blood Pressure 96/64 (mmHg) O2 Sat by Pulse 93 Oximetry Oxygen Devices in Use Now: None Appearance: Patient is an 79yo male who appears stated age and is sitting in the bed in [facility]. Eyes: No Scleral Icterus, PERRLA Ears/Nose/Mouth/Throat: NL Teeth, Lips, Gums, Clear Oropharnyx, Mucous Membranes Moist Neck: NL Appearance and Movements; NL JVP, Trachea Midline Respiratory: Symmetrical Chest Expansion and Respiratory Effort, Clear to Auscultation Cardiovascular: NL Sounds; No Murmurs; No JVD, RRR, No Edema Abdominal: NL Sounds; No Tenderness; No Distention, No Hepatosplenomegaly Lymphatic: No Cervical Adenopathy Skin: No Rash or Ulcers, No Nodules or Sclerosis Neurological: NL Sensation, NL Muscle Strength and Tone, - - Alert and oriented to self. Sensation and strength preserved distally to fracture. Result Diagrams: 02/04/19 04:55 02/04/19 04:55 Microbiology and Other Data: Microbiology 02/03/19 18:30 Nasal Screen MRSA (PCR) - Final Nasal Mrsa Not Detected Assess/Plan/Problems-Billing Assessment: Patient is an 79yo male with a PMH for HFpEF and dementia who is admitted with a femur fracture pending likely surgical repair. - Patient Problems (1) Laura-prosthetic femoral shaft fracture Current Visit: Yes Status: Acute Code(s): M97.8XXA - PERIPROSTH FRACTURE AROUND OTHER INTERNAL PROSTH JOINT, INIT; Z96.649 - PRESENCE OF UNSPECIFIED ARTIFICIAL HIP JOINT SNOMED Code(s): 074677392 Comment: - Traumatic due to fall with no other injury - Pain control with opiates/tylenol - Surgical management pending with orthopedics - No other complication, NWB at this time - Surgical benefits likely outweigh risks. (2) (HFpEF) heart failure with preserved ejection fraction Current Visit: Yes Status: Acute Code(s): I50.30 - UNSPECIFIED DIASTOLIC ( CONGESTIVE) HEART FAILURE SNOMED Code(s): 445224899 Comment: - Not in acute exacerbation - No need for further optimization at this time - Strict I/O and daily weight. (3) Alzheimer's dementia Current Visit: Yes Status: Acute Code(s): G30.9 - ALZHEIMER'S DISEASE, UNSPECIFIED; F02.80 - DEMENTIA IN OTH DISEASES CLASSD ELSWHR W/O BEHAVRL DISTURB SNOMED Code(s): 04650270 Comment: - With behavioral disturbance - Opiates and benzos for pain control at this time. - Assess for ongoing behavioral needs particularly given hip fracture. (4) DVT prophylaxis Current Visit: Yes Status: Acute Code(s): Z29.9 - ENCOUNTER FOR PROPHYLACTIC MEASURES, UNSPECIFIED SNOMED Code(s): 858078409 Comment: - Heparin SubQ (5) DNR (do not resuscitate) Current Visit: Yes Status: Acute Status and Disposition: Inpatient for likely surgical repair of femur on .
[2019-02-04] MEDS ORDERED: Calcium Carbonate CHEW TAB* 500 MG (TUMS) PO PRN (13:07)
[2019-02-04] MEDS: LORazepam INJ* 2 MG/ML 1 ML VIAL IV PUSH PRN (20:54)
[2019-02-05] MEDS: Heparin VIAL(*) 5000 UNITS/ML VIAL (FIVE THOUSAND) SUBCUT SCH ×3 (05:51→22:31)
[2019-02-05] MEDS: fentaNYL Patch Check Q Shift 1 NOTE FOLLOW UP SCH ×2 (08:04→19:14)
[2019-02-05] MEDS: Docusate CAP* 100 MG PO SCH ×2 (09:42→14:54)
[2019-02-05] MEDS: Multivitamins/Minerals TAB PO SCH ×2 (09:43→14:57)
[2019-02-05] MEDS: Lisinopril TAB* 10 MG PO SCH ×2 (09:43→14:53)
[2019-02-05] MEDS: Sertraline* 50 MG TAB PO SCH ×2 (09:44→14:53)
[2019-02-05] MEDS ORDERED: Buffered Lidocaine 1% SYRIN* 1 ML/SYRINGE INTRADERM ONE (12:47)
--- NOTE | 2019-02-05 15:17 | PN ---
Subjective Date of Service: 02/05/19 Interval History: Patient is feeling well today. Patient was much less agitated overnight with the ativan dose and family being present. Patient denies F/C, N/V, abdominal pain, dysuria, CP, SOB, dizziness, or other pain. Family History: Unchanged from Admission Social History: Unchanged from Admission Past Medical History: Unchanged from Admission Objective Active Medications: Acetaminophen (Tylenol Tab*) 650 mg PO Q6H PRN PRN Reason: MILD PAIN or TEMP > 100.4 Last Admin: 02/03/19 20:32 Dose: 650 mg Calcium Carbonate (Tums*) 1,000 mg PO Q6HR PRN PRN Reason: INDIGESTION Docusate Sodium (Colace Cap*) 100 mg PO DAILY [facility] Last Admin: 02/05/19 14:54 Dose: 100 mg Fentanyl (Duragesic Patch 50 Mcg/Hr*) 50 mcg TRANSDERM Q72H [facility] Last Admin: 02/03/19 17:35 Dose: 50 mcg Heparin Sodium (Porcine) (Heparin Vial(*)) 5,000 units SUBCUT Q8HR [facility] Last Admin: 02/05/19 14:53 Dose: 5,000 units Lactated Ringer's (Lactated Ringers 1000 Ml Bag*) 1,000 mls @ 125 mls/hr IV PER RATE [facility] Lisinopril (Prinivil Tab*) 10 mg PO DAILY [facility] Last Admin: 02/05/19 14:53 Dose: 10 mg Lorazepam (Ativan Inj*) 1 mg IV PUSH BEDTIME PRN PRN Reason: AGITATION Last Admin: 02/04/19 20:54 Dose: 1 mg Miscellaneous (Ativan Pyxis Marx) 1 ea N/A .ATIVAN IV MARX PRN PRN Reason: PYXIS MARX Morphine Sulfate (Morphine Inj (Syringe))*) 2 mg IV Q4H PRN PRN Reason: PAIN - SEVERE Last Admin: 02/03/19 23:37 Dose: 2 mg Multivitamins/Minerals (Theragran/Minerals Tab*) 1 tab PO DAILY [facility] Last Admin: 02/05/19 14:57 Dose: 1 tab Ondansetron HCl (Zofran Inj*) 4 mg IV Q6H PRN PRN Reason: NAUSEA Oxycodone HCl (Roxycodone Tab*) 5 mg PO Q6H PRN PRN Reason: PAIN - MODERATE Last Admin: 02/04/19 17:21 Dose: 5 mg Pharmacy Profile Note (Fentanyl Patch Check Q Shift) 1 note FOLLOW UP 0700, 1900 [facility] Last Admin: 02/05/19 08:04 Dose: 1 note Sertraline HCl (Zoloft*) 50 mg PO DAILY [facility] Last Admin: 02/05/19 14:53 Dose: 50 mg Vital Signs - 8 hr 02/05/19 02/05/19 02/05/19 08:00 08:09 11:15 Temperature 97.5 F 97.9 F Pulse Rate 80 46 Respiratory 17 22 20 Rate Blood Pressure 118/88 119/77 (mmHg) O2 Sat by Pulse 91 94 Oximetry Oxygen Devices in Use Now: None Appearance: Patient is an 79yo male who appears stated age and is sitting in the bed in [facility]. Eyes: No Scleral Icterus, PERRLA Ears/Nose/Mouth/Throat: NL Teeth, Lips, Gums, Clear Oropharnyx, Mucous Membranes Moist Neck: NL Appearance and Movements; NL JVP, Trachea Midline Respiratory: Symmetrical Chest Expansion and Respiratory Effort, Clear to Auscultation Cardiovascular: NL Sounds; No Murmurs; No JVD, RRR, No Edema Abdominal: NL Sounds; No Tenderness; No Distention, No Hepatosplenomegaly Lymphatic: No Cervical Adenopathy Extremities: No Clubbing, Cyanosis, - - Swelling of Right thigh. Skin: No Nodules or Sclerosis Neurological: NL Sensation, NL Muscle Strength and Tone, - - Alert and oriented only to self. Result Diagrams: 02/04/19 04:55 02/04/19 04:55 Microbiology and Other Data: Microbiology 02/03/19 18:30 Nasal Screen MRSA (PCR) - Final Nasal Mrsa Not Detected Assess/Plan/Problems-Billing Assessment: Patient is an 79yo male with a PMH for HFpEF and dementia who is admitted with a femur fracture pending likely surgical repair. - Patient Problems (1) Laura-prosthetic femoral shaft fracture Current Visit: Yes Status: Acute Code(s): M97.8XXA - PERIPROSTH FRACTURE AROUND OTHER INTERNAL PROSTH JOINT, INIT; Z96.649 - PRESENCE OF UNSPECIFIED ARTIFICIAL HIP JOINT SNOMED Code(s): 873297260 Comment: - Traumatic due to fall with no other injury - Pain control with opiates/tylenol - Surgical management pending with orthopedics - No other complication, NWB at this time - Surgical benefits likely outweigh risks. - Surgery tomorrow, NPO after midnight and stop Heparin after 2200 dose. (2) (HFpEF) heart failure with preserved ejection fraction Current Visit: Yes Status: Acute Code(s): I50.30 - UNSPECIFIED DIASTOLIC ( CONGESTIVE) HEART FAILURE SNOMED Code(s): 309435052 Comment: - Not in acute exacerbation - No need for further optimization at this time - Strict I/O and daily weight. (3) Alzheimer's dementia Current Visit: Yes Status: Acute Code(s): G30.9 - ALZHEIMER'S DISEASE, UNSPECIFIED; F02.80 - DEMENTIA IN OTH DISEASES CLASSD ELSWHR W/O BEHAVRL DISTURB SNOMED Code(s): 77189233 Comment: - With behavioral disturbance - Opiates and benzos for pain control at this time. - Assess for ongoing behavioral needs particularly given hip fracture. (4) DVT prophylaxis Current Visit: Yes Status: Acute Code(s): Z29.9 - ENCOUNTER FOR PROPHYLACTIC MEASURES, UNSPECIFIED SNOMED Code(s): 630794780 Comment: - Heparin SubQ held after midnight, SCDs. (5) DNR (do not resuscitate) Current Visit: Yes Status: Acute Status and Disposition: Inpatient for likely surgical repair of femur tomorrow.
[2019-02-05] MEDS: oxyCODONE TAB* 5 MG TAB PO PRN (16:22)
--- NOTE | 2019-02-05 16:26 | PN ---
Progress Note - Progress Note Date of Service: 02/05/19 SOAP: Subjective: []Pt seen at bedside, he has no pain at rest. Denies CP, SOB, abd pain, nausea, dizziness. He and his both agree to ORIF R periprosthetic femur fracture tomorrow. Objective: [] Gen: NAD , laying comfortably in bed RLE: RLE skin envelope intact, tender over right hip. Thigh soft. DF/PF intact, DP+, sensation intact to light touch distally Calves supple and nontender without erythema, edema or palpable cords Assessment: [] Periprosthetic fracture right femur Plan: []NWB RLE Bedrest Chemical and mechanical DVT prophy. At midnight he should be NPO and Heparin to be held. Continue SCDs Again discussed operative vs nonoperative treatment options. Patient and agree to proceed with surgical intervention for R periprosthetic femur fracture. Vital Signs Temp 97.7 F 02/05/19 16:10 Pulse 89 02/05/19 16:10 Resp 18 02/05/19 16:22 BP 115/65 02/05/19 16:10 Pulse Ox 95 02/05/19 16:10 Intake & Output 02/04/19 02/05/19 02/05/19 18:59 06:59 18:59 Intake Total 480 480 340 Output Total 0 Balance 480 480 340 Weight 182 lb 12.8 oz Intake: Oral 480 480 340 Output: Urine 0 Other: Estimated Void Large # Bowel Movements 0 # Voids 3 2 Laboratory Last Values WBC 10.1 10^3/uL (3.5-10.8) 02/04/19 04:55 RBC 4.25 10^6 /uL (4.18-5.48) 02/04/19 04:55 Hgb 14.8 g/dL (14.0-18.0) 02/04/19 04:55 Hct 43 % (42-52) 02/04/19 04:55 MCV 100 fL (80-94) H 02/04/19 04:55 MCH 35 pg (27-31) H 02/04/19 04:55 MCHC 35 g/dL (31-36) 02/04/19 04:55 RDW 13 % (10-15) 02/04/19 04:55 Plt Count 173 10^3/uL (150-450) 02/04/19 04:55 MPV 7.9 fL (7.4-10.4) 02/04/19 04:55 Neut % (Auto) 75.2 % 02/04/19 04:55 Lymph % (Auto) 14.9 % 02/04/19 04:55 [place] % (Auto) 9.0 % 02/04/19 04:55 Eos % (Auto) 0.6 % 02/04/19 04:55 Baso % (Auto) 0.3 % 02/04/19 04:55 Absolute Neuts (auto) 7.6 10^3/ul (1.5-7.7) 02/04/19 04:55 Absolute Lymphs (auto) 1.5 10^3/ul (1.0-4.8) 02/04/19 04:55 Absolute Monos (auto) 0.9 10^3/ul (0-0.8) H 02/04/19 04:55 Absolute Eos (auto) 0.1 10^3/ul (0-0.6) 02/04/19 04:55 Absolute Basos (auto) 0.0 10^3/ul (0-0.2) 02/04/19 04:55 Absolute Nucleated RBC 0.0 10^3/ul 02/04/19 04:55 Nucleated RBC % 0.0 02/04/19 04:55 INR (Anticoag Therapy) 1.05 (0.82-1.09) 02/03/19 12:24 Sodium 138 mmol/L (135-145) 02/04/19 04:55 Potassium 3.9 mmol/L (3.5-5.0) 02/04/19 04:55 Chloride 105 mmol/L (101-111) 02/04/19 04:55 Carbon Dioxide 28 mmol/L (22-32) 02/04/19 04:55 Anion Gap 5 mmol/L (2-11) 02/04/19 04:55 BUN 25 mg/dL (6-24) H 02/04/19 04:55 Creatinine 1.01 mg/dL (0.67-1.17) 02/04/19 04:55 Est GFR ( Amer) 85.8 (>60) 02/04/19 04:55 Est GFR (Non-Af Amer) 70.9 (>60) 02/04/19 04:55 BUN/Creatinine Ratio 24.8 (8-20) H 02/04/19 04:55 Glucose 116 mg/dL (70-100) H 02/04/19 04:55 Calcium 9.7 mg/dL (8.6-10.3) 02/04/19 04:55 Magnesium 2.2 mg/dL (1.9-2.7) 02/04/19 04:55 Total Bilirubin 0.70 mg/dL (0.2-1.0) 02/03/19 12:33 AST 17 U/L (13-39) 02/03/19 12:33 ALT 20 U/L (7-52) 02/03/19 12:33 Alkaline Phosphatase 54 U/L (34-104) 02/03/19 12:33 Total Protein 7.2 g/dL (6.4-8.9) 02/03/19 12:33 Albumin 4.3 g/dL (3.2-5.2) 02/03/19 12:33 Globulin 2.9 g/dL (2-4) 02/03/19 12:33 Albumin/Globulin Ratio 1.5 (1-3) 02/03/19 12:33
--- NOTE | 2019-02-05 16:32 | PN ---
Progress Note - Progress Note Date of Service: 02/05/19 SOAP: Subjective: 79 yo male, h/o dementia, sustained a witnessed fell at [facility]. Brought to ED< x-rays showed a periprosthetic right femur fracture. and family considered non-op treatment, but have decided to proceed. I introduced myself, as I would be available tomorrow afternoon to do surgery and he is added on to the OR schedule for 1PM. Objective: White male, not oriented to self. Tries to reach for his right thigh whenever he moves. Assessment: Right periprosthetic femur fx Plan: D/W his my hope the distal portiuon of the stem is well fixed, so using cerclage wires and a plate to hold the fx together would work well. If the stem is loose, revision of the femoral component would be required. Risks of surgery such as infection, non-healing of the fracture were discussed. His would like to proceed and also mentioned his DNR. I d/w her that will be addressed tomorrow as well.
[2019-02-05] MEDS: LORazepam INJ* 2 MG/ML 1 ML VIAL IV PUSH PRN (22:29)
[2019-02-06] MEDS: Morphine INJ* 2 MG/ML 1 ML SYRINGE (TWO MG - NEW SYRINGE VERSION) IV PRN ×4 (03:52→22:29)
[2019-02-06] MEDS: Lactated Ringers 1000 ML Bag* 1,000 ML IV SCH ×2 (06:00→17:23)
[2019-02-06] MEDS: fentaNYL Patch Check Q Shift 1 NOTE FOLLOW UP SCH ×2 (07:25→18:54)
[2019-02-06] MEDS: Sertraline* 50 MG TAB PO SCH (09:00)
[2019-02-06] MEDS: Lisinopril TAB* 10 MG PO SCH (09:00)
[2019-02-06] MEDS: Multivitamins/Minerals TAB PO SCH (09:01)
[2019-02-06] MEDS: Docusate CAP* 100 MG PO SCH (09:01)
[2019-02-06 10:35] LABS: ABS Basophils 0.1 10^3/ul (0-0.2); ABS Eosinophils 0.1 10^3/ul (0-0.6); ABS Lymphocytes 1.3 10^3/ul (1.0-4.8); ABS Monocytes 0.9 10^3/ul (0-0.8); ABS Neutrophils 7.1 10^3/ul (1.5-7.7); Eosinophil % 0.6 %; Hematocrit 40 % (42-52); Hemoglobin 13.9 g/dL (14.0-18.0); Lymphocyte % 13.9 %; Mean Corpuscular HGB Conc 35 g/dL (31-36); Mean Corpuscular Hemoglobin 35 pg (27-31); Mean Corpuscular Volume 100 fL (80-94); Mean Platelet Volume 8.3 fL (7.4-10.4); Platelet Count 166 10^3/uL (150-450); Red Blood Count 3.97 10^6 /uL (4.18-5.48); Red Cell Distribution Width 13 % (10-15); White Blood Count 9.4 10^3/uL (3.5-10.8)
[2019-02-06 10:56] LABS: INR 1.16 (0.82-1.09)
[2019-02-06 11:10] LABS: BUN/Creatinine Ratio 30.5 (8-20); Calcium 9.4 mg/dL (8.6-10.3); EGFR African American 92.1 (>60); EGFR Non-African American 76.1 (>60)
[2019-02-06] MEDS ORDERED: ROPIVACAINE 5 MG/ML 30 ML BTL (0.5%) ONE (11:11)
[2019-02-06] MEDS ORDERED: Midazolam* 1 MG/ML 2 ML VIAL (2 MG) ONE (11:19)
[2019-02-06] MEDS ORDERED: Lidocaine 2% PF * 5 ML VIAL ONE ×2 (11:19→12:53)
[2019-02-06] MEDS ORDERED: KETAMINE HCL* 50 MG/ML 10 ML VIAL ONE (11:19)
[2019-02-06] MEDS ORDERED: Glycopyrrolate IV* 0.2 MG/ML 1 ML VIAL ONE (11:25)
[2019-02-06] MEDS ORDERED: Neostigmine Methylsulfate* 1 MG/ML 10 ML VIAL (1 mg/ml) ONE (11:25)
[2019-02-06] MEDS ORDERED: Bupivacaine 0.25% EPI 200,000* 30 ML SDV ONE (12:08)
[2019-02-06] MEDS ORDERED: ceFAZolin 2 GM in NS PREMIX(*) 2 GM/100 ML BAG IVPB ONE (12:25)
[2019-02-06] MEDS ORDERED: Bupivacaine 0.25% SDV PF* 10 ML VIAL INJ ONE (12:53)
[2019-02-06] MEDS ORDERED: Propofol* 10 MG/ML 20 ML BTL ONE ×2 (12:54→15:19)
[2019-02-06] MEDS ORDERED: Phenylephrine 10 MG/ML VIAL* 1 ML VIAL ONE ×2 (12:54)
[2019-02-06] MEDS ORDERED: Phenylephrine 40 MCG/ML SYRINGE ONE (12:54)
[2019-02-06] MEDS ORDERED: fentaNYL* 50 MCG/ML 2 ML VIAL (100 MCG VIAL) ONE (13:30)
--- NOTE | 2019-02-06 13:55 | PN ---
Subjective Date of Service: 02/06/19 Interval History: Patient has no complaints. Patient denies pain in leg, patient denies F/C, N/V, abdominal pain, diarrhea, CP, SOB, or other pain. Patient and family feel ready for surgery today. Family History: Unchanged from Admission Social History: Unchanged from Admission Past Medical History: Unchanged from Admission Objective Active Medications: Acetaminophen (Tylenol Tab*) 650 mg PO Q6H PRN PRN Reason: MILD PAIN or TEMP > 100.4 Last Admin: 02/03/19 20:32 Dose: 650 mg Calcium Carbonate (Tums*) 1,000 mg PO Q6HR PRN PRN Reason: INDIGESTION Fentanyl (Duragesic Patch 50 Mcg/Hr*) 50 mcg TRANSDERM Q72H [facility] Last Admin: 02/03/19 17:35 Dose: 50 mcg Lactated Ringer's (Lactated Ringers 1000 Ml Bag*) 1,000 mls @ 125 mls/hr IV PER RATE [facility] Last Admin: 02/06/19 06:00 Dose: 125 mls/hr Lisinopril (Prinivil Tab*) 10 mg PO DAILY [facility] Last Admin: 02/06/19 09:00 Dose: 10 mg Lorazepam (Ativan Inj*) 1 mg IV PUSH BEDTIME PRN PRN Reason: AGITATION Last Admin: 02/05/19 22:29 Dose: 1 mg Miscellaneous (Ativan Pyxis Marx) 1 ea N/A .ATIVAN IV MARX PRN PRN Reason: PYXIS MARX Morphine Sulfate (Morphine Inj (Syringe))*) 2 mg IV Q4H PRN PRN Reason: PAIN - SEVERE Last Admin: 02/06/19 08:57 Dose: 2 mg Multivitamins/Minerals (Theragran/Minerals Tab*) 1 tab PO DAILY [facility] Last Admin: 02/06/19 09:01 Dose: Not Given Ondansetron HCl (Zofran Inj*) 4 mg IV Q6H PRN PRN Reason: NAUSEA Oxycodone HCl (Roxycodone Tab*) 5 mg PO Q6H PRN PRN Reason: PAIN - MODERATE Last Admin: 02/05/19 16:22 Dose: 5 mg Pharmacy Profile Note (Fentanyl Patch Check Q Shift) 1 note FOLLOW UP 0700, 1900 [facility] Last Admin: 02/06/19 07:25 Dose: 1 note Sertraline HCl (Zoloft*) 50 mg PO DAILY [facility] Last Admin: 02/06/19 09:00 Dose: 50 mg Vital Signs - 8 hr 02/06/19 02/06/19 02/06/19 07:30 08:00 08:57 Temperature 97.4 F Pulse Rate 73 Respiratory 17 18 18 Rate Blood Pressure 137/66 (mmHg) O2 Sat by Pulse 93 Oximetry 02/06/19 02/06/19 02/06/19 09:55 11:15 11:43 Temperature 97.1 F 98.2 F Pulse Rate 79 69 Respiratory 17 18 20 Rate Blood Pressure 119/74 130/75 (mmHg) O2 Sat by Pulse 93 93 Oximetry Oxygen Devices in Use Now: None Appearance: Patient is an 79yo male who appears stated age and is sitting in the bed in NAD. Eyes: No Scleral Icterus, PERRLA Ears/Nose/Mouth/Throat: NL Teeth, Lips, Gums, Clear Oropharnyx, Mucous Membranes Moist Neck: NL Appearance and Movements; NL JVP Respiratory: Symmetrical Chest Expansion and Respiratory Effort, Clear to Auscultation Cardiovascular: NL Sounds; No Murmurs; No JVD, RRR, No Edema Abdominal: NL Sounds; No Tenderness; No Distention, No Hepatosplenomegaly Lymphatic: No Cervical Adenopathy Extremities: No Edema, No Clubbing, Cyanosis Skin: No Rash or Ulcers, No Nodules or Sclerosis Neurological: NL Sensation, NL Muscle Strength and Tone, - - Oriented only to self. Result Diagrams: 02/06/19 10:25 02/06/19 10:25 Microbiology and Other Data: Microbiology 02/03/19 18:30 Nasal Screen MRSA (PCR) - Final Nasal Mrsa Not Detected Assess/Plan/Problems-Billing Assessment: Patient is an 79yo male with a PMH for HFpEF and dementia who is admitted with a femur fracture pending likely surgical repair. - Patient Problems (1) Laura-prosthetic femoral shaft fracture Current Visit: Yes Status: Acute Code(s): M97.8XXA - PERIPROSTH FRACTURE AROUND OTHER INTERNAL PROSTH JOINT, INIT; Z96.649 - PRESENCE OF UNSPECIFIED ARTIFICIAL HIP JOINT SNOMED Code(s): 927780769 Comment: - Traumatic due to fall with no other injury - Pain control with opiates/tylenol - Surgical management pending with orthopedics - No other complication, NWB at this time - Surgical benefits likely outweigh risks. - Surgery today - Will need rehab after surgery. (2) (HFpEF) heart failure with preserved ejection fraction Current Visit: Yes Status: Acute Code(s): I50.30 - UNSPECIFIED DIASTOLIC ( CONGESTIVE) HEART FAILURE SNOMED Code(s): 869859212 Comment: - Not in acute exacerbation - No need for further optimization at this time - Strict I/O and daily weight. (3) Alzheimer's dementia Current Visit: Yes Status: Acute Code(s): G30.9 - ALZHEIMER'S DISEASE, UNSPECIFIED; F02.80 - DEMENTIA IN OTH DISEASES CLASSD ELSWHR W/O BEHAVRL DISTURB SNOMED Code(s): 28081260 Comment: - With behavioral disturbance - Opiates and benzos for pain control at this time. - Assess for ongoing behavioral needs particularly given hip fracture. (4) DVT prophylaxis Current Visit: Yes Status: Acute Code(s): Z29.9 - ENCOUNTER FOR PROPHYLACTIC MEASURES, UNSPECIFIED SNOMED Code(s): 648174150 Comment: - Heparin SubQ held, SCDs. - Resume tomorrow. (5) DNR (do not resuscitate) Current Visit: Yes Status: Acute Status and Disposition: Inpatient for likely surgical repair of femur tomorrow.
[2019-02-06] MEDS ORDERED: Labetalol IV* 5 MG/ML 20 ML VIAL ONE ×2 (14:36→14:40)
[2019-02-06] MEDS ORDERED: hydrALAZINE IV* 20 MG/ML VIAL ONE (15:21)
[2019-02-06] MEDS ORDERED: Rocuronium* 10 MG/ML VIAL ONE (15:54)
[2019-02-06] MEDS ORDERED: nitroGLYCERIN IV VIAL* 5 MG/ML VIAL ONE (16:00)
[2019-02-06] MEDS ORDERED: EPINEPHrine SYR 0.1MG/ML* SYRINGE ONE (16:16)
[2019-02-06] MEDS ORDERED: EPINEPHRINE 1 MG/ML 1 ML VIAL ONE (16:17)
[2019-02-06] MEDS ORDERED: Docusate LIQ* 100 MG/10 ML UDC PO PRN (16:30)
[2019-02-06] MEDS ORDERED: Cyclobenzaprine TAB* 10 MG PO PRN (16:30)
[2019-02-06] MEDS ORDERED: Lorazepam PYXIS KEY PRN (16:57)
[2019-02-06] MEDS: Propofol* 100 ML IV SCH ×2 (17:21→21:54)
[2019-02-06] MEDS: fentaNYL PATCH 50 MCG/HR TRANSDERM SCH (18:00)
[2019-02-06] MEDS: LORazepam INJ* 2 MG/ML 1 ML VIAL IV PUSH PRN ×2 (18:25→21:42)
--- NOTE | 2019-02-06 18:39 | PN ---
Hospitalist Progress Note Date of Service: 02/06/19 In OR patient had brief cardiac arrest which resolved with atropine and epinephrine. Patient transferred to ICU intubated. BP soft, Fluids running. Management Per [facility] [employer].
--- NOTE | 2019-02-06 19:30 | OP ---
OPERATIVE REPORT: DATE OF OPERATION: 02/06/19 - Inpatient 4th floor, then room [id number] DATE OF : 36 ATTENDING PHYSICIAN: Cristo Carbone MD DENTAL APPLIANCE MECHANIC: ELDON Doherty ANESTHESIOLOGIST: Jenny Osuna DO ANESTHESIA: Initially regional and spinal with sedation and then general. PRE-OP DIAGNOSIS: Displaced periprosthetic right proximal femur fracture. POST-OP DIAGNOSIS: Displaced periprosthetic right proximal femur fracture. OPERATIVE PROCEDURE: Open reduction internal fixation, right periprosthetic femur fracture. ESTIMATED BLOOD LOSS: 75 cc. COMPLICATIONS: Asystole. SUMMARY: Mr. Avery is an 79-year-old male who had fallen at [facility]. He had sustained a periprosthetic right femur fracture. I had time this afternoon and Dr. Rivera had asked me if I would be willing to talk with the family to see if we could set Mr. Avery up for an ORIF. Yesterday, I spoke with his , who has power of bankruptcy attorney, as Mr. Avery has significant dementia. I discussed with her that I believe he would just need an ORIF as opposed to a revision of the entire hip, as it appeared that the distal portion of his femoral component was still well fixed. Unfortunately, we would be unable to confirm that until we would in surgery and a revision would be a much larger case. Risks of surgery such as infection, scar formation, stiffness, DVT , pulmonary embolism, and nonhealing of the fracture were some of the risks discussed. She reported that she would like to proceed. DESCRIPTION OF PROCEDURE: The patient had a block placed in the holding area and was brought back to the OR. Spinal anesthesia was eventually established. He was then slid to the fracture table and placed in left lateral decubitus position. Axillary roll was placed and he appeared to be nicely padded with the wixson hip positioners on the radiolucent flat top table. Humphries catheter also had been placed. Right hip area was prepped and then draped. Incision was made using his old incision and I extended distally and proximally for about an extra centimeter or so. Incision was carried down through the skin and subcutaneous tissues. Fascia was exposed and a Hughes was used to clean the adherent tissues off to allow for attempted later repair. Sharp incision was made and vastus lateralis was directly underneath. The fascia of the vastus was then also sharply split and then using a Hughes, the muscle attachments were peeled from the lateral aspect of the femur. Coming upwards, part of the vastus attachment was also split to allow for the plate placement. With manipulating the fracture, I was able to scrape out hematoma and this was also pulse lavaged out. Longest trochanteric claw plate that we had was called for and this covered the length of the prosthesis. Using the wire passers, these were scraped directly along the bone of the femur and then run through and around. Once wires were placed proximally, we first checked with C-arm to make sure that I hooked under the lesser trochanter and that it sat down nicely. These were snug down and tightened, but not crimped. In similar fashion, additional wires were placed until the plate was very secure and the fracture fragments also fairly well reduced. C-arm pictures were taken and I liked the alignment and the wires were then crimped. While beginning the crimping, a code was called as his heart rate had bryanna down and anesthesia lost his heart rate and pulse. He was then intubated and his pressures improved as did his heart rate. The exposed wires were cut and the vastus lateralis fascia and lateral fascia were all repaired together using a running 0. At this point, he became more stable again and the subcutaneous tissues were approximated using 2- 0 Vicryl. Skin was closed using lani. Sterile dressing was applied. The patient was then shifted to an ICU bed and went intubated to the ICU. [id number]/[facility] #: [id number] SUPA
[2019-02-06] MEDS: ceFAZolin 1 GM ADVAN(*) 1 GM in NS 0.9% 50 ML* 50 ML IVPB SCH (21:45)
[2019-02-06] MEDS: CHLORHEXADINE (PERIDEX) VENT ORAL CARE TOPICAL SCH ×3 (21:54→23:00)
[2019-02-06] MEDS ORDERED: Midazolam IV for DRIP* 100 MG in NS 0.9% 100 ML* 80 ML IV SCH (23:00)
[2019-02-06] MEDS: Morphine INJ* 2 MG/ML 1 ML SYRINGE (TWO MG - NEW SYRINGE VERSION) ONE ×2 (23:01→23:35)
[2019-02-06] MEDS ORDERED: Morphine INJ* 2 MG/ML 1 ML SYRINGE (TWO MG - NEW SYRINGE VERSION) IV ONE (23:24)
[2019-02-06] MEDS ORDERED: Morphine INJ* 2 MG/ML 1 ML SYRINGE (TWO MG - NEW SYRINGE VERSION) ONE (23:34)
[2019-02-07] MEDS: Lactated Ringers 1000 ML Bag* 1,000 ML IV SCH ×3 (01:31→17:40)
[2019-02-07] MEDS: CHLORHEXADINE (PERIDEX) VENT ORAL CARE TOPICAL SCH ×4 (02:35→12:41)
[2019-02-07] MEDS: Morphine INJ* 2 MG/ML 1 ML SYRINGE (TWO MG - NEW SYRINGE VERSION) IV PRN ×4 (02:50→19:46)
[2019-02-07 05:00] LABS: ABS Lymphocytes 0.5 10^3/ul (1.0-4.8); ABS Neutrophils 10.2 10^3/ul (1.5-7.7); Eosinophil % 0.1 %; Hematocrit 35 % (42-52); Hemoglobin 12.2 g/dL (14.0-18.0); Lymphocyte % 4.4 %; Mean Corpuscular HGB Conc 35 g/dL (31-36); Mean Corpuscular Hemoglobin 35 pg (27-31); Mean Corpuscular Volume 100 fL (80-94); Mean Platelet Volume 8.7 fL (7.4-10.4); Platelet Count 161 10^3/uL (150-450); Red Blood Count 3.53 10^6 /uL (4.18-5.48); Red Cell Distribution Width 13 % (10-15); White Blood Count 11.8 10^3/uL (3.5-10.8)
[2019-02-07 05:37] LABS: BUN/Creatinine Ratio 26.4 (8-20); Calcium 8.5 mg/dL (8.6-10.3); EGFR African American 77.7 (>60); EGFR Non-African American 64.2 (>60); Phosphorus 4.2 mg/dL (2.5-5.0); Potassium 4.1 mmol/L (3.5-5.0)
[2019-02-07] MEDS: ceFAZolin 1 GM ADVAN(*) 1 GM in NS 0.9% 50 ML* 50 ML IVPB SCH ×2 (05:59→14:35)
[2019-02-07] MEDS: fentaNYL Patch Check Q Shift 1 NOTE FOLLOW UP SCH ×2 (07:09→18:50)
--- NOTE | 2019-02-07 07:51 | CONSULT ---
Consult Consult: 79 yo gentleman with PMH significant for dementia, diastolic failure, HTN, and back pain who presented to the OR for repair of a femur fracture s/p a mechanical fall. I was the anesthesiologist taking care of him. After a thorough discussion with the family, it was decided that he is DNR be amended such that they were okay with intubation and CV support medications but no chest compressions, defibrillation, nor cardioversion. A spinal was placed, which took multiple attempts given his significant scoliosis. His BP was on the lower side during the spinal placement, and to assist him sitting still during the procedure midazolam, fentanyl, and ketamine was given. Crystal clear CSF was attained and bupivacaine given. Rather than have the expected drop in BP s/p spinal his BP went up. He was sedated with propofol. It was noted that every fourth beat he was having a PVC. The PVCs mostly stopped after the surgery began. His QRS complexes and [place] intervals were normal, and there were no concerning ST changes. I maxed out my labetalol and hydralazine doses to get his BP down. I could not tell if the BP reading was accurate. He was shaking his arms and that can give falsely high reads. I changed the BP cuff, changed which arm it was reading on, and then went to the nonoperative leg since that should not shake 2/2 his spinal. After that, the next BP reading was SBP of 115. Then the subsequent next two pressures were high again. I gave more hydralazine. His HR had been consistently in the 60s-70s. Then all of a sudden it dropped to the high 20s on the EKG, that was mirrored on the pulse ox, I gave 0.2mg of atropine. And then his EKG reading went to asystole, his pulse ox for a moment was still in the 20s, but his etCO2 trail off. A code was called. I saw one to two QRS complexes on the EKG and quickly gave 1mg of epinepherine which he responded to with ROSC. He was only asystolic for a very brief time, maybe a minute if that long. We went ahead and secured his air despite spontaneous respirations given uncertain neurologic status. Rocuronium was given at that time because he was still making respiratory effort making ventilation difficult. His BP was still high so we gave nitroglycerin, the surgeons were closing and then his BP was low requiring bolusing of pressors. He was brought to the ICU on full monitors. He was stable from a CV standpoint when I left the bedside. Last night and this morning he is spontaneously moving all extremities but not following commands. He is being sedated with versed. As to why he coded, it is unclear. On the top of my differential was a stroke, he could have some underlying electrical conduction abnormality in his heart, or bradycardia in response to hypertension that quickly decompensated to asystole. I thank the ICU and OR staff for their excellent care and hope that he can be extubated soon so that we can get a better neurologic exam.
[2019-02-07] MEDS: Sertraline* 50 MG TAB PO SCH (07:54)
[2019-02-07] MEDS: Multivitamins/Minerals TAB PO SCH (07:54)
[2019-02-07] MEDS: Lisinopril TAB* 10 MG PO SCH (07:54)
[2019-02-07] MEDS: Pantoprazole IV* 40 MG IV SCH (08:25)
[2019-02-07] MEDS: Heparin VIAL(*) 5000 UNITS/ML VIAL (FIVE THOUSAND) SUBCUT SCH ×2 (12:06→19:47)
--- NOTE | 2019-02-07 12:20 | PN ---
Date of Service: 02/07/19 Critical Care Services: Unheralded cardiac arrest during a hip repair intubated and transferred to ICU. Vital Signs: Temp Pulse Resp BP SpO2 FiO2 36.8 C 83 27 145/82 98 30 02/07/19 07:57 02/07/19 09:45 02/07/19 09:00 02/07/19 09:45 02/07/19 11:05 02/07 08:00 Physical Exam: Gen: sedated on vent when I saw him early this AM HEENT: NCAT, PERRL, intubated Lungs: coarse entry bilat Cardiac: S1S2 regular Abdomen: soft, NT, ND, +BS Extremities: trace edema Neuro: rousable and follows commands x 4 Fluid Balance (Past 24 Hours): I= O= Net Intake & Output 02/05/19 02/06/19 02/07/19 02/08/19 06:59 06:59 06:59 06:59 Intake Total 960 1660 1492 Output Total 0 1125 180 Balance 960 1660 367 -180 Weight 82.917 kg 83.37 kg 85.7 kg Intake: IV Fluids 1343 ABX - CEFAZOLIN 11 LR 1332 IVPB 58 ABX - CEFAZOLIN 58 Medicated IV 91 propofol 91 Oral 960 1660 0 Output: Urine 0 Humphries 1125 180 Other: Estimated Void Large Large Medium # Bowel Movements 0 0 # Voids 2 3 1 Labs: Laboratory Results - last 24 hr 02/07/19 02/07/19 04:30 04:30 WBC 11.8 H RBC 3.53 L Hgb 12.2 L Hct 35 L MCV 100 H MCH 35 H MCHC 35 RDW 13 Plt Count 161 MPV 8.7 Neut % (Auto) 86.6 Lymph % (Auto) 4.4 [place] % (Auto) 8.9 Eos % (Auto) 0.1 Baso % (Auto) 0.0 Absolute Neuts (auto) 10.2 H Absolute Lymphs (auto) 0.5 L Absolute Monos (auto) 1.0 H Absolute Eos (auto) 0.0 Absolute Basos (auto) 0.0 Absolute Nucleated RBC 0.0 Nucleated RBC % 0.0 Sodium 141 Potassium 4.1 Chloride 108 Carbon Dioxide 24 Anion Gap 9 BUN 29 H Creatinine 1.10 Est GFR ( Amer) 77.7 Est GFR (Non-Af Amer) 64.2 BUN/Creatinine Ratio 26.4 H Glucose 160 H Calcium 8.5 L Phosphorus 4.2 Magnesium 2.0 Studies: CXR with no effusion or infiltrate Nutrition: will start PO Impression: Reported Asystolic arrest in OR responsive to Epi/Atropine Plan: Cardiac Arrest - after reviewing the coruse of events with anesthesia we were both concerned for primary TECHNICAL BUSINESS SYSTEMS ANALYST event ( HTN, HoTN, bradycardia) In the 30 minutes that followed the neuro exam serially improved to the point that he was following commands and I elected the [facility] at that time more risk than benefit. No indication at that time for therapeutic hypothermia with an intact neuro exam 60 minutes post arrest. It sounds like the spinal may have migrated as there is little other in the way of precipitating event with which to point. Will check ECG/ECHO/Troponins but I suspect they will all be ok or unchanged. He is currently in a sinus rhythm with a tight complex in the 80s. Femur fracture - s/p ORIF, per Ortho We stopped his versed this am and I have just written for extubation. He has done very well on an SBT with excellent CPAP mechanics, pulling 900cc on 16/10 with a clear CXR. D/W grand-daughter at bedside this AM. Critical Care Time: 35 minutes
[2019-02-07] MEDS ORDERED: Perflutren Lipid Microsphere* 3 ML VIAL ONE (13:52)
--- NOTE | 2019-02-07 14:12 | PN ---
Progress Note - Progress Note Date of Service: 02/07/19 SOAP: Subjective: Pt seen at bedside. Pt intubated, but awake and responds to verbal stimuli. Per nursing, his dressing is coming off. Vital Signs: Temp Pulse Resp BP Pulse Ox 98.8 F 81 25 134/81 100 02/07/19 12:00 02/07/19 13:01 02/07/19 13:01 02/07/19 12:45 02/07/19 13:01 Laboratory Last Values WBC 11.8 10^3/uL (3.5-10.8) H 02/07/19 04:30 RBC 3.53 10^6 /uL (4.18-5.48) L 02/07/19 04:30 Hgb 12.2 g/dL (14.0-18.0) L 02/07/19 04:30 Hct 35 % (42-52) L 02/07/19 04:30 MCV 100 fL (80-94) H 02/07/19 04:30 MCH 35 pg (27-31) H 02/07/19 04:30 MCHC 35 g/dL (31-36) 02/07/19 04:30 RDW 13 % (10-15) 02/07/19 04:30 Plt Count 161 10^3/uL (150-450) 02/07/19 04:30 MPV 8.7 fL (7.4-10.4) 02/07/19 04:30 Neut % (Auto) 86.6 % 02/07/19 04:30 Lymph % (Auto) 4.4 % 02/07/19 04:30 [place] % (Auto) 8.9 % 02/07/19 04:30 Eos % (Auto) 0.1 % 02/07/19 04:30 Baso % (Auto) 0.0 % 02/07/19 04:30 Absolute Neuts (auto) 10.2 10^3/ul (1.5-7.7) H 02/07/19 04:30 Absolute Lymphs (auto) 0.5 10^3/ul (1.0-4.8) L 02/07/19 04:30 Absolute Monos (auto) 1.0 10^3/ul (0-0.8) H 02/07/19 04:30 Absolute Eos (auto) 0.0 10^3/ul (0-0.6) 02/07/19 04:30 Absolute Basos (auto) 0.0 10^3/ul (0-0.2) 02/07/19 04:30 Absolute Nucleated RBC 0.0 10^3/ul 02/07/19 04:30 Nucleated RBC % 0.0 02/07/19 04:30 INR (Anticoag Therapy) 1.16 (0.82-1.09) H 02/06/19 10:25 Sodium 141 mmol/L (135-145) 02/07/19 04:30 Potassium 4.1 mmol/L (3.5-5.0) 02/07/19 04:30 Chloride 108 mmol/L (101-111) 02/07/19 04:30 Carbon Dioxide 24 mmol/L (22-32) 02/07/19 04:30 Anion Gap 9 mmol/L (2-11) 02/07/19 04:30 BUN 29 mg/dL (6-24) H 02/07/19 04:30 Creatinine 1.10 mg/dL (0.67-1.17) 02/07/19 04:30 Est GFR ( Amer) 77.7 (>60) 02/07/19 04:30 Est GFR (Non-Af Amer) 64.2 (>60) 02/07/19 04:30 BUN/Creatinine Ratio 26.4 (8-20) H 02/07/19 04:30 Glucose 160 mg/dL (70-100) H 02/07/19 04:30 POC Glucose (mg/dL) 134 mg/dL (70-100) H 02/06/19 06:32 Calcium 8.5 mg/dL (8.6-10.3) L 02/07/19 04:30 Phosphorus 4.2 mg/dL (2.5-5.0) 02/07/19 04:30 Magnesium 2.0 mg/dL (1.9-2.7) 02/07/19 04:30 Total Bilirubin 0.70 mg/dL (0.2-1.0) 02/03/19 12:33 AST 17 U/L (13-39) 02/03/19 12:33 ALT 20 U/L (7-52) 02/03/19 12:33 Alkaline Phosphatase 54 U/L (34-104) 02/03/19 12:33 Troponin I 0.30 ng/mL (<0.04) H* 02/07/19 12:49 Total Protein 7.2 g/dL (6.4-8.9) 02/03/19 12:33 Albumin 4.3 g/dL (3.2-5.2) 02/03/19 12:33 Globulin 2.9 g/dL (2-4) 02/03/19 12:33 Albumin/Globulin Ratio 1.5 (1-3) 02/03/19 12:33 Blood Type O Positive 02/06/19 10:25 Antibody Screen Negative 02/06/19 10:25 Objective: Awake and intubated, NAD Dressing changed, Incision C/D/I, Calves soft, No edema, NVI distally Assessment: 79 yo male s/p ORIF right hip periprosthetic hip fracture POD #1 Plan: 50% WB RLE Dementia stable Pain control DVT prophylaxis - Heparin
--- NOTE | 2019-02-07 16:21 | ECHO ---
*[facility]* [place] [address] Fax #: [phone] Transthoracic Echocardiogram Patient: Gopi Avery : 1940 Study Date: 02/07/2019 Age: 79 Gender: M HR: 93 bpm Height: 72 in /182.9 cm BSA: 2.08 m^2 Weight: 187.6 lb /85.3 kg BMI: 25.5 kg/m^2 *Telephone Surveyor: * Rosemarie Maradiaga [facility] [place] *Referring Physician: * Addison Howard *Reading Physician: * Severo Wiggins MD Indications: Cardiac Arrest. History: Congestive heart failure. Risk factors: Hypertension. Conclusions Summary: - Left ventricle: The cavity size is normal. Wall thickness is mildly increased. Systolic function is normal. The estimated ejection fraction is 50-55%. Wall motion is normal; there are no regional wall motion abnormalities. - Left atrium: The atrium is severely dilated. - Functionally benign heart valves. - Aortic arch: The aortic arch is mildly dilated. - Since the prior echocardiogram completed 11/30/13, there is no significant change. Study data: Transthoracic echocardiogram. Procedure: Transthoracic echocardiography was performed. Image quality was suboptimal. Intravenous Definity , 3 mlswas administered. Image enhancement administered by CATRACHITO Weinbergcommunity director. Complete 2D, spectral Doppler, and color flow Doppler. Location: ICU Patient status: Inpatient. Patient room number: 8. Rhythm: Normal sinus rhythm with PVC's. Findings Left ventricle: The cavity size is normal. Wall thickness is mildly increased. Systolic function is normal. The estimated ejection fraction is 50-55%. Wall motion is normal; there are no regional wall motion abnormalities. Left ventricular diastolic function parameters are indeterminate. Right ventricle: The cavity size is normal. Systolic function is normal. Left atrium: The atrium is severely dilated. Right atrium: Not well visualized. Mitral valve: The leaflets are mildly thickened. There is no significant regurgitation. Aortic valve: Not well visualized. The leaflets are mildly calcified. There is no evidence of stenosis. There is no significant regurgitation. Tricuspid valve: Not well visualized. The leaflets are normal thickness. There is no significant regurgitation. Pulmonic valve: Not well visualized. There is no evidence of stenosis. There is no significant regurgitation. Aorta: Aortic root: The aortic root is appears normal. Ascending aorta: The ascending aorta is appears normal. Aortic arch: The aortic arch is mildly dilated. Pericardium: There is no significant pericardial effusion. Pulmonary arteries: Not well visualized. Systolic pressure is within the normal range. Systemic veins: Inferior vena cava: Not well visualized. Measurements Left ventricle Value Ref Aortic valve Value Ref RONNIE, LAX 5.4 cm 4.2 - 5.8 Franck diam, ED 2.5 cm ----- ESD, LAX 2.7 cm 2.5 - 4.0 Peak v, S 1.32 m/sec ----- FS, LAX (H) 50 % 25 - 43 VTI, S 22.1 cm ----- PW, ED, LAX (H) 1.3 cm 0.6 - 1.0 Mean grad, S 4.0 mm Hg ----- EF (H) 81 % 52 - 72 Peak grad, S 7.0 mm Hg ----- E', lat franck, TDI 11.2 cm/sec >=10.0 E/e', lat franck, 4 Mitral valve Value Ref TDI Peak E 0.46 m/sec ----- E', med franck, TDI 7.5 cm/sec >=7.0 Peak A 0.58 m/sec --- -- E/e', med franck, 6 Decel time 198 ms ----- TDI Peak E/A ratio 0.8 ----- E', avg, TDI 9.4 cm/sec E/e', avg, TDI 5 <=14 Pulmonic valve Value Ref Peak v, S 0.93 m/sec ----- LVOT Value Ref Peak grad, S 3.0 mm Hg ----- Peak aida, S 0.59 m/sec Mean grad, S 1 mm Hg Tricuspid valve Value Ref TR peak v 2.4 m/sec <=2.8 Ventricular septum Value Ref Peak RV-RA grad, S 23 mm Hg ----- IVS, ED (H) 1.4 cm 0.6 - 1.0 Aortic root Value Ref Right ventricle Value Ref Root diam 3.5 cm <4.2 RONNIE, LAX 2.9 cm RONNIE minor ax, A4C 3.4 cm 1.9 - 3.5 Ascending aorta Value Ref mid AAo AP diam, S 3.4 cm ----- Pressure, S 31 mm Hg Aortic arch Value Ref Left atrium Value Ref Arch diam 3.8 cm ----- AP dim, ES (H) 4.50 cm 3.00 - 4.00 Decending aorta Value Ref ML dim, A4C 5.0 cm Rachelle peak aida 0.74 m/sec ----- SI dim, A4C 6.8 cm Vol/bsa, ES, A/L (H) 51 ml/m^2 16 - 34 Pulmonary artery Value Ref Pressure, S 28.0 mm Hg ----- Right atrium Value Ref Estimated RAP 8 mm Hg Legend: (L) and (H) sang values outside specified reference range. Prepared and electronically signed by Severo Wiggins MD 02/07/2019 16:20
[2019-02-07] MEDS: LORazepam INJ* 2 MG/ML 1 ML VIAL IV PUSH PRN ×2 (17:08→21:24)
[2019-02-08] MEDS: Morphine INJ* 2 MG/ML 1 ML SYRINGE (TWO MG - NEW SYRINGE VERSION) IV PRN ×3 (02:00→06:44)
[2019-02-08 04:10] LABS: Hematocrit 29 % (42-52); Hemoglobin 10.6 g/dL (14.0-18.0); Mean Corpuscular HGB Conc 36 g/dL (31-36); Mean Corpuscular Hemoglobin 36 pg (27-31); Mean Corpuscular Volume 100 fL (80-94); Mean Platelet Volume 8.3 fL (7.4-10.4); Platelet Count 142 10^3/uL (150-450); Red Blood Count 2.95 10^6 /uL (4.18-5.48); Red Cell Distribution Width 13 % (10-15); White Blood Count 9.4 10^3/uL (3.5-10.8)
[2019-02-08] MEDS: Heparin VIAL(*) 5000 UNITS/ML VIAL (FIVE THOUSAND) SUBCUT SCH ×3 (04:19→21:07)
[2019-02-08 04:24] LABS: ALT 19 U/L (7-52); AST 46 U/L (13-39); Albumin 3.1 g/dL (3.2-5.2); Albumin/Globulin Ratio 1.2 (1-3); Alkaline Phosphatase 35 U/L (34-104); Anion Gap 5 mmol/L (2-11); BUN/Creatinine Ratio 28.9 (8-20); Blood Urea Nitrogen 24 mg/dL (6-24); CO2 Carbon Dioxide 27 mmol/L (22-32); Calcium 8.4 mg/dL (8.6-10.3); Chloride 109 mmol/L (101-111); EGFR African American 107.6 (>60); EGFR Non-African American 88.9 (>60); Globulin 2.6 g/dL (2-4); Glucose 142 mg/dL (70-100); Phosphorus 2.1 mg/dL (2.5-5.0); Potassium 3.4 mmol/L (3.5-5.0); Sodium 141 mmol/L (135-145); Total Protein 5.7 g/dL (6.4-8.9)
[2019-02-08 04:35] LABS: Troponin I 0.19 ng/mL (<0.04)
[2019-02-08] MEDS: KCL 20 MEQ/100 ML IVPREMIX* 20 MEQ/100 ML BAG IV SCH ×2 (06:20→09:45)
[2019-02-08] MEDS ORDERED: Potassium Phosphate IV* 15 MMOLE in NS 0.9% 250 ML* 250 ML IVPB ONE (06:30)
[2019-02-08] MEDS: fentaNYL Patch Check Q Shift 1 NOTE FOLLOW UP SCH ×3 (07:25→18:58)
[2019-02-08] MEDS: Lactated Ringers 1000 ML Bag* 1,000 ML IV SCH ×4 (07:26→22:33)
[2019-02-08] MEDS: Lisinopril TAB* 10 MG PO SCH (09:45)
[2019-02-08] MEDS: Multivitamins/Minerals TAB PO SCH (09:45)
[2019-02-08] MEDS: Pantoprazole IV* 40 MG IV SCH (09:45)
[2019-02-08] MEDS: Sertraline* 50 MG TAB PO SCH (09:45)
[2019-02-08] MEDS: Acetaminophen TAB* 325 MG PO PRN (09:53)
--- NOTE | 2019-02-08 11:09 | PN ---
Progress Note - Progress Note Date of Service: 02/08/19 - POD #2 Note: POD 2: s/p right hip periprosthetic fracture with ORIF. Patient is somnolent but arousable to verbal stimulus. His daughter and are at the bedside. His dressing was changed yesterday and is intact today. He sat up with assistance at the bedside earlier today, but is quite lethargic due to sedation. He has AROM in bilateral ankles. Skin is pink, warm and dry with 2+ PT pulses. Patient is unable to verbalize with me whether he can feel sensation, but he reported sensation to nursing earlier today. Continue 50% WB with assistance, DVT prophylaxis, PT, OT. We will continue to monitor.
[2019-02-08] MEDS ORDERED: fentaNYL* 50 MCG/ML 2 ML VIAL (100 MCG VIAL) IV SLOW PU PRN (11:43)
[2019-02-08] MEDS ORDERED: LORazepam INJ* 2 MG/ML 1 ML VIAL IV PUSH PRN (11:44)
--- NOTE | 2019-02-08 12:00 | PN ---
Date of Service: 02/08/19 Critical Care Services: Tolerated extubation well. A little lethargic today after morphine at 6:45 AM. Vital Signs: Temp Pulse Resp BP SpO2 FiO2 37.2 C 77 27 95/75 99 30 02/08/19 08:00 02/08/19 11:01 02/08/19 11:01 02/08/19 11:01 02/08/19 11:01 02/07 08:00 Physical Exam: Gen: rousable but sleeping after morphine. HEENT: NCAT, PERRL Lungs: clear Cardiac: S1S2 regular Abdomen: soft, NT, ND, +BS Extremities: no edema Neuro: rouses and grossly intact to baseline Fluid Balance (Past 24 Hours): I= O= Net Intake & Output 02/06/19 02/07/19 02/08/19 02/09/19 06:59 06:59 06:59 06:59 Intake Total 1660 1492 2953 Output Total 1125 1662 473 Balance 6435 093 4658 -473 Weight 83.37 kg 85.7 kg 88.1 kg Intake: IV Fluids 1343 2850 ABX - CEFAZOLIN 11 LR 1332 2850 IVPB 58 103 ABX - CEFAZOLIN 58 LR 103 Medicated IV 91 propofol 91 Oral 1660 0 0 Output: Humphries 1125 1662 473 Other: Estimated Void Large Medium Date of Last Bowel 02/07/19 Movement # Bowel Movements 0 1 Estimated Stool Amount Small # Voids 3 1 Labs: Laboratory Results - last 24 hr 02/07/19 02/08/19 02/08/19 12:49 03:56 03:56 WBC 9.4 RBC 2.95 L Hgb 10.6 L Hct 29 L MCV 100 H MCH 36 H MCHC 36 RDW 13 Plt Count 142 L MPV 8.3 Sodium 141 Potassium 3.4 L Chloride 109 Carbon Dioxide 27 Anion Gap 5 BUN 24 Creatinine 0.83 Est GFR ( Amer) 107.6 Est GFR (Non-Af Amer) 88.9 BUN/Creatinine Ratio 28.9 H Glucose 142 H Calcium 8.4 L Ionized Calcium Phosphorus 2.1 L Magnesium 2.0 Total Bilirubin 1.20 H AST 46 H ALT 19 Alkaline Phosphatase 35 Troponin I 0.30 H* 0.19 H* Total Protein 5.7 L Albumin 3.1 L Globulin 2.6 Albumin/Globulin Ratio 1.2 02/08/19 03:56 WBC RBC Hgb Hct MCV MCH MCHC RDW Plt Count MPV Sodium Potassium Chloride Carbon Dioxide Anion Gap BUN Creatinine Est GFR ( Amer) Est GFR (Non-Af Amer) BUN/Creatinine Ratio Glucose Calcium Ionized Calcium 1.24 Phosphorus Magnesium Total Bilirubin AST ALT Alkaline Phosphatase Troponin I Total Protein Albumin Globulin Albumin/Globulin Ratio Studies: ECHO and EKG unchanged from prior to arrest Nutrition: Cleared for nectar thick with puree. Impression: Pod #2 ORIF hip complicated by cardiac arrest now extubated and doing well Plan: Cardiac arrest - tolerated extubation well yesterday. respiratory status excellent., No arrhythmias documented. Repeat ECHO and EKG unchanged from prior to arrest. Troponins weakly positive and well within the demand range. In the context of a stable ECHO and EKG no concern for IL. Neurologically intact to baseline. Hypoactive delirium - combination of baseline dementia, acute illness, benzodiazepines and narcotics. DC benzos entirely and add risperdal 0.5mg QHS. 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 Femur Fracture - s/p ORIF. OOB and working with PT Dysphagia - nectar thick and puree diet ordered. Likely to floor later today vs AM depending on his lethargy. D/W and daughter in detail at bedside regarding risks of aggressive pain management, sedation, aspiration and survival. Family is clear that a little tough love within reason is appropriate and they will be supportive to get the best functional outcome possible with the understanding that he will therefore have some pain to spare over-sedation.
[2019-02-08] MEDS ORDERED: Calcium Carbonate LIQ* 1,250 MG/5 ML UDC PO PRN (14:00)
[2019-02-08] MEDS: Acetaminophen ADULT LIQ* 650 MG/20.3 ML UDC PO PRN (21:06)
[2019-02-08] MEDS: RISPERIDONE 0.5 MG PO SCH (21:07)
[2019-02-09] MEDS: Heparin VIAL(*) 5000 UNITS/ML VIAL (FIVE THOUSAND) SUBCUT SCH ×3 (04:43→21:54)
[2019-02-09] MEDS: fentaNYL Patch Check Q Shift 1 NOTE FOLLOW UP SCH ×2 (07:02→19:05)
[2019-02-09] MEDS ORDERED: Polyethylene Glycol 3350* 17 GM PACKET PO PRN (07:45)
--- NOTE | 2019-02-09 10:24 | PN ---
Progress Note - Progress Note Date of Service: 02/09/19 Note: POD 3: s/p right hip periprosthetic fracture with ORIF. Patient is alert and responding to questions appropriately today. His is at the bedside. His dressing is C/D/I. He stood today and his pain in manage with oral medication at this time. + DF/PF bilateral ankles with intact sensation and 2+ DP pulses. Skin is pink, warm and dry. Continue 50% WB with assistance, DVT prophylaxis, PT , OT. We appreciate medicine's guidance We will continue to monitor.
[2019-02-09] MEDS: oxyCODONE TAB* 5 MG TAB PO PRN (10:28)
[2019-02-09] MEDS: Lisinopril TAB* 10 MG PO SCH (10:28)
[2019-02-09] MEDS: Multivitamins ADULT w/MIN LIQ* 15 ML UDC PO SCH (10:29)
[2019-02-09] MEDS: Sertraline* 50 MG TAB PO SCH (10:29)
[2019-02-09] MEDS: Acetaminophen ADULT LIQ* 650 MG/20.3 ML UDC PO PRN (10:30)
--- NOTE | 2019-02-09 12:46 | PN ---
Subjective Date of Service: 02/09/19 Interval History: Patient is more alert today per per nursing reports. Patient was very sedated overnight with high dose of Fentanyl. Patient denies Pain, SOB, CP, dizziness, N /V, or other pain. Discussed with family any they are very encouraged with his recent progress. Family History: Unchanged from Admission Social History: Unchanged from Admission Past Medical History: Unchanged from Admission Objective Active Medications: Acetaminophen (Tylenol Adult Liq*) 650 mg PO Q6H PRN PRN Reason: MILD PAIN OR TEMP>100.4 Last Admin: 02/09/19 10:30 Dose: 650 mg Calcium Carbonate (Calcium Carbonate Liq*) 1,000 mg PO Q6HR PRN PRN Reason: INDIGESTION Cyclobenzaprine HCl (Flexeril Tab*) 5 mg PO Q12H PRN PRN Reason: SPASMS - MUSCLE Last Admin: 02/09/19 10:29 Dose: 5 mg Fentanyl (Duragesic Patch 50 Mcg/Hr*) 50 mcg TRANSDERM Q72H [facility] Last Admin: 02/06/19 18:00 Dose: Not Given Heparin Sodium (Porcine) (Heparin Vial(*)) 5,000 units SUBCUT Q8H [facility] Last Admin: 02/09/19 11:59 Dose: 5,000 units Lisinopril (Prinivil Tab*) 10 mg PO DAILY [facility] Last Admin: 02/09/19 10:28 Dose: 10 mg Multivitamins (Theragran W/Minerals Liq*) 1 ml PO DAILY [facility] Last Admin: 02/09/19 10:29 Dose: Not Given Ondansetron HCl (Zofran Inj*) 4 mg IV Q6H PRN PRN Reason: NAUSEA Oxycodone HCl (Roxycodone Tab*) 5 mg PO Q6H PRN PRN Reason: PAIN - MODERATE Last Admin: 02/09/19 10:28 Dose: 5 mg Pharmacy Profile Note (Fentanyl Patch Check Q Shift) 1 note FOLLOW UP 0700, 1900 [facility] Last Admin: 02/09/19 07:02 Dose: 1 note Polyethylene Glycol/Electrolytes (Miralax*) 17 gm PO DAILY PRN PRN Reason: CONSTIPATION Risperidone (Risperdal) 0.5 mg PO BEDTIME [facility] Last Admin: 02/08/19 21:07 Dose: 0.5 mg Sertraline HCl (Zoloft*) 50 mg PO DAILY [facility] Last Admin: 02/09/19 10:29 Dose: 50 mg Vital Signs - 8 hr 02/09/19 02/09/19 02/09/19 04:43 07:55 08:00 Temperature 98.6 F Pulse Rate 75 Respiratory 18 22 18 Rate Blood Pressure 138/75 (mmHg) O2 Sat by Pulse 97 Oximetry 02/09/19 02/09/19 02/09/19 10:28 10:29 11:24 Temperature 99.6 F Pulse Rate 77 Respiratory 18 18 17 Rate Blood Pressure 124/60 (mmHg) O2 Sat by Pulse 94 Oximetry 02/09/19 02/09/19 12:24 12:25 Temperature Pulse Rate Respiratory 18 18 Rate Blood Pressure (mmHg) O2 Sat by Pulse Oximetry Oxygen Devices in Use Now: None Appearance: Patient is an 79yo male who appears stated age and is sitting in the bed in NAD. Eyes: No Scleral Icterus, PERRLA Ears/Nose/Mouth/Throat: NL Teeth, Lips, Gums, Clear Oropharnyx, Mucous Membranes Moist Neck: NL Appearance and Movements; NL JVP, Trachea Midline Respiratory: Symmetrical Chest Expansion and Respiratory Effort, Clear to Auscultation Cardiovascular: NL Sounds; No Murmurs; No JVD, RRR, No Edema Abdominal: NL Sounds; No Tenderness; No Distention, No Hepatosplenomegaly Lymphatic: No Cervical Adenopathy Extremities: No Clubbing, Cyanosis Skin: No Nodules or Sclerosis, - - Surgical incision covered in bulky dressing. Neurological: Alert and Oriented x 3, NL Sensation, NL Muscle Strength and Tone , - - CN II-XII intact. Result Diagrams: 02/08/19 03:56 02/08/19 03:56 Microbiology and Other Data: Microbiology 02/03/19 18:30 Nasal Screen MRSA (PCR) - Final Nasal Mrsa Not Detected Assess/Plan/Problems-Billing Assessment: Patient is an 79yo male with a PMH for HFpEF and dementia who is admitted with a femur fracture pending likely surgical repair. - Patient Problems (1) Laura-prosthetic femoral shaft fracture Current Visit: Yes Status: Acute Code(s): M97.8XXA - PERIPROSTH FRACTURE AROUND OTHER INTERNAL PROSTH JOINT, INIT; Z96.649 - PRESENCE OF UNSPECIFIED ARTIFICIAL HIP JOINT SNOMED Code(s): 214298887 Comment: - Traumatic due to fall with no other injury, S/P Fixation - Pain control with opiates/tylenol - Complicated surgical course with brief cardiac arrest and then intubation in ICU - No other complication, PT/OT - Will need rehab after surgery. (2) (HFpEF) heart failure with preserved ejection fraction Current Visit: Yes Status: Acute Code(s): I50.30 - UNSPECIFIED DIASTOLIC ( CONGESTIVE) HEART FAILURE SNOMED Code(s): 275266007 Comment: - Not in acute exacerbation - No need for further optimization at this time - Strict I/O and daily weight. - Echo in ICU unremarkable (3) Alzheimer's dementia Current Visit: Yes Status: Acute Code(s): G30.9 - ALZHEIMER'S DISEASE, UNSPECIFIED; F02.80 - DEMENTIA IN OTH DISEASES CLASSD ELSWHR W/O BEHAVRL DISTURB SNOMED Code(s): 84551266 Comment: - With behavioral disturbance - Opiates for pain control at this time. - Risperdal for overnight issues. - Assess for ongoing behavioral needs particularly given hip fracture. (4) DVT prophylaxis Current Visit: Yes Status: Acute Code(s): Z29.9 - ENCOUNTER FOR PROPHYLACTIC MEASURES, UNSPECIFIED SNOMED Code(s): 452378710 Comment: - Heparin SubQ held, SCDs. - Resume tomorrow. (5) DNR (do not resuscitate) Current Visit: Yes Status: Acute Status and Disposition: Inpatient pending rehab.
[2019-02-09] MEDS: fentaNYL PATCH 50 MCG/HR TRANSDERM SCH (16:26)
[2019-02-09] MEDS: RISPERIDONE 0.5 MG PO SCH (21:54)
[2019-02-10] MEDS: Heparin VIAL(*) 5000 UNITS/ML VIAL (FIVE THOUSAND) SUBCUT SCH ×3 (04:14→22:25)
[2019-02-10 06:30] LABS: ABS Eosinophils 0.1 10^3/ul (0-0.6); ABS Lymphocytes 0.8 10^3/ul (1.0-4.8); ABS Monocytes 0.4 10^3/ul (0-0.8); ABS Neutrophils 5.1 10^3/ul (1.5-7.7); Hematocrit 30 % (42-52); Hemoglobin 10.5 g/dL (14.0-18.0); Lymphocyte % 12.7 %; Mean Corpuscular HGB Conc 35 g/dL (31-36); Mean Corpuscular Hemoglobin 35 pg (27-31); Mean Corpuscular Volume 101 fL (80-94); Mean Platelet Volume 7.9 fL (7.4-10.4); Platelet Count 163 10^3/uL (150-450); Red Blood Count 2.97 10^6 /uL (4.18-5.48); Red Cell Distribution Width 13 % (10-15); White Blood Count 6.5 10^3/uL (3.5-10.8)
[2019-02-10 06:41] LABS: BUN/Creatinine Ratio 33.3 (8-20); Calcium 8.6 mg/dL (8.6-10.3); EGFR African American 120.9 (>60); Magnesium 2.2 mg/dL (1.9-2.7); Potassium 3.3 mmol/L (3.5-5.0)
[2019-02-10] MEDS: fentaNYL Patch Check Q Shift 1 NOTE FOLLOW UP SCH ×2 (06:56→19:37)
[2019-02-10] MEDS ORDERED: Potassium Chloride* LIQUID 20 MEQ/15 ML UDC PO ONE (07:10)
[2019-02-10] MEDS: Lisinopril TAB* 10 MG PO SCH (08:54)
[2019-02-10] MEDS: Sertraline* 50 MG TAB PO SCH (08:54)
[2019-02-10] MEDS: Multivitamins ADULT w/MIN LIQ* 15 ML UDC PO SCH ×2 (09:29→10:02)
--- NOTE | 2019-02-10 11:14 | PN ---
Subjective Date of Service: 02/10/19 Interval History: Patient is persistently confused, patient however denies F/C, N/V, abdominal pain, CP, SOB. Patient while working with PT was lowered to the floor on his right hip. Patient had hip pain, but he is unable to say if it is worse or not. Family History: Unchanged from Admission Social History: Unchanged from Admission Past Medical History: Unchanged from Admission Objective Active Medications: Acetaminophen (Tylenol Adult Liq*) 650 mg PO Q6H PRN PRN Reason: MILD PAIN OR TEMP>100.4 Last Admin: 02/09/19 10:30 Dose: 650 mg Calcium Carbonate (Calcium Carbonate Liq*) 1,000 mg PO Q6HR PRN PRN Reason: INDIGESTION Cyclobenzaprine HCl (Flexeril Tab*) 5 mg PO Q12H PRN PRN Reason: SPASMS - MUSCLE Last Admin: 02/09/19 10:29 Dose: 5 mg Fentanyl (Duragesic Patch 50 Mcg/Hr*) 50 mcg TRANSDERM Q72H [facility] Last Admin: 02/09/19 16:26 Dose: 50 mcg Heparin Sodium (Porcine) (Heparin Vial(*)) 5,000 units SUBCUT Q8H [facility] Last Admin: 02/10/19 04:14 Dose: 5,000 units Lisinopril (Prinivil Tab*) 10 mg PO DAILY [facility] Last Admin: 02/10/19 08:54 Dose: 10 mg Multivitamins (Theragran W/Minerals Liq*) 15 ml PO DAILY [facility] Last Admin: 02/10/19 09:29 Dose: 15 ml Ondansetron HCl (Zofran Inj*) 4 mg IV Q6H PRN PRN Reason: NAUSEA Oxycodone HCl (Roxycodone Tab*) 5 mg PO Q6H PRN PRN Reason: PAIN - MODERATE Last Admin: 02/09/19 10:28 Dose: 5 mg Pharmacy Profile Note (Fentanyl Patch Check Q Shift) 1 note FOLLOW UP 0700, 1900 [facility] Last Admin: 02/10/19 06:56 Dose: 1 note Polyethylene Glycol/Electrolytes (Miralax*) 17 gm PO DAILY PRN PRN Reason: CONSTIPATION Risperidone (Risperdal) 0.5 mg PO BEDTIME [facility] Last Admin: 02/09/19 21:54 Dose: 0.5 mg Sertraline HCl (Zoloft*) 50 mg PO DAILY [facility] Last Admin: 02/10/19 08:54 Dose: 50 mg Vital Signs - 8 hr 02/10/19 02/10/19 07:53 08:00 Temperature 97.8 F Pulse Rate 70 Respiratory 20 20 Rate Blood Pressure 115/67 (mmHg) O2 Sat by Pulse 94 Oximetry Oxygen Devices in Use Now: None Appearance: Patient is an 79yo male who appears stated age and is sitting in the bed in [facility]. Eyes: No Scleral Icterus, PERRLA Ears/Nose/Mouth/Throat: NL Teeth, Lips, Gums, Clear Oropharnyx, Mucous Membranes Moist Neck: NL Appearance and Movements; NL JVP, Trachea Midline Respiratory: Symmetrical Chest Expansion and Respiratory Effort, Clear to Auscultation Cardiovascular: NL Sounds; No Murmurs; No JVD, RRR, No Edema Abdominal: NL Sounds; No Tenderness; No Distention, No Hepatosplenomegaly Lymphatic: No Cervical Adenopathy Extremities: No Edema Skin: No Rash or Ulcers, - - Left Hip incision without drainage. Neurological: NL Sensation, NL Muscle Strength and Tone, - - CN II-XII intact. Result Diagrams: 02/10/19 06:18 02/10/19 06:18 Microbiology and Other Data: Microbiology 02/03/19 18:30 Nasal Screen MRSA (PCR) - Final Nasal Mrsa Not Detected Assess/Plan/Problems-Billing Assessment: Patient is an 79yo male with a PMH for HFpEF and dementia who is admitted with a femur fracture pending likely surgical repair. - Patient Problems (1) Laura-prosthetic femoral shaft fracture Current Visit: Yes Status: Acute Code(s): M97.8XXA - PERIPROSTH FRACTURE AROUND OTHER INTERNAL PROSTH JOINT, INIT; Z96.649 - PRESENCE OF UNSPECIFIED ARTIFICIAL HIP JOINT SNOMED Code(s): 933399567 Comment: - Traumatic due to fall with no other injury, S/P Fixation - Pain control with opiates/tylenol - Complicated surgical course with brief cardiac arrest and then intubation in ICU - No other complication, PT/OT - Will need rehab after surgery. - Fall again today, Repeat hip XR pending. (2) Cardiac arrest Current Visit: Yes Status: Acute Code(s): I46.9 - CARDIAC ARREST, CAUSE UNSPECIFIED SNOMED Code(s): 319308907 Comment: - Intraop, unclear cause - Slight troponin elevation - Patient continues to be DNR. (3) (HFpEF) heart failure with preserved ejection fraction Current Visit: Yes Status: Acute Code(s): I50.30 - UNSPECIFIED DIASTOLIC ( CONGESTIVE) HEART FAILURE SNOMED Code(s): 235947289 Comment: - Not in acute exacerbation - No need for further optimization at this time - Strict I/O and daily weight. - Echo in ICU unremarkable (4) Alzheimer's dementia Current Visit: Yes Status: Acute Code(s): G30.9 - ALZHEIMER'S DISEASE, UNSPECIFIED; F02.80 - DEMENTIA IN OTH DISEASES CLASSD ELSWHR W/O BEHAVRL DISTURB SNOMED Code(s): 47173593 Comment: - With behavioral disturbance - Opiates for pain control at this time. - Risperdal for overnight issues. - Assess for ongoing behavioral needs particularly given hip fracture. (5) DVT prophylaxis Current Visit: Yes Status: Acute Code(s): Z29.9 - ENCOUNTER FOR PROPHYLACTIC MEASURES, UNSPECIFIED SNOMED Code(s): 158834556 Comment: - Heparin SubQ held, SCDs. - Resume tomorrow. (6) DNR (do not resuscitate) Current Visit: Yes Status: Acute Status and Disposition: Inpatient pending rehab.
[2019-02-10] MEDS: RISPERIDONE 0.5 MG PO SCH (22:25)
[2019-02-11] MEDS: Heparin VIAL(*) 5000 UNITS/ML VIAL (FIVE THOUSAND) SUBCUT SCH ×2 (04:10→12:12)
[2019-02-11 07:11] LABS: BUN/Creatinine Ratio 34.8 (8-20); Calcium 8.9 mg/dL (8.6-10.3); EGFR African American 133.2 (>60); Potassium 3.6 mmol/L (3.5-5.0)
[2019-02-11] MEDS: fentaNYL Patch Check Q Shift 1 NOTE FOLLOW UP SCH (07:22)
[2019-02-11] MEDS: Lisinopril TAB* 10 MG PO SCH (09:30)
[2019-02-11] MEDS: Sertraline* 50 MG TAB PO SCH (09:30)
[2019-02-11] MEDS: Multivitamins ADULT w/MIN LIQ* 15 ML UDC PO SCH (09:30)
--- NOTE | 2019-02-11 13:41 | DS ---
CC: Dr. Mee Pink; Dr. Damaris Rivera, Orthopedics; Dr. Addison Howard, ICU; [facility] * DATE OF ADMISSION: 02/03/2019. DATE OF DISCHARGE: 02/11/2019. PRIMARY CARE PHYSICIAN: Dr. Mee Pink. ATTENDING PHYSICIAN FOR TODAY: Dr. Nicole Butt * (dictated by Kerline Melendez, GILLIAN). HOSPITAL COURSE: Mr. Avery is an 79-year-old male patient with a past medical history of heart failure and dementia who was admitted with a periprosthetic femur fracture who was admitted for repair. He had a very complex course and an intraoperative cardiac arrest. The patient had a prolonged course in the ICU with intubation and then extubation and then sustained his respiratory status on CPAP. It is noted per the ICU nurse that on the day of the arrest and 30 minutes following, his neurologic exam improved. The patient was awake and had responded in the OR to epi and Atropine. He was not placed on cooling protocol. After discussions between Anesthesia and Dr. Howrad, consideration was given that the spinal anesthesia may have impacted the patient 's event. In any case, the patient did have EKG, an echo and troponins. Troponins were weakly positive at that time, likely demand in the presence of his arrest. His echocardiogram, however, did not show any complexities, pathology, or changes. Echocardiogram dated 02/07/2019 showed an ejection fraction of 50 to 55 percent; there was some mildly increased wall thickness of the LV; right atrium had severe dilatation; there is functionally benign heart valves; mildly dilated aortic arch; no significant changes from previous echo dated 11/30/2013. EKG with no acute changes and again weakly positive troponins, likely in the setting of demand. The patient did experience some delirium post extubation. Given his history of dementia and acute hospitalization, he did require re-orientation. Also, consideration needed to be given to the fact that the patient did have a significant amount of narcotics and benzo's during intubation. Medications were titrated. He was taken off narcotics and placed back on his Risperdal in the evening. The patient did pass his dysphagia screening and was placed on nectar- thick and pureed diet. He was eventually transferred down to the floor on 02/09/2019. During the time of this hospitalization, Orthopedics continued to follow the patient closely. Please refer to Orthopedics notes on his surgical procedure; however, Orthopedics did complete the ORIF procedure for the patient's fracture. He has not had any issues with his wound or his dressings. He has been quite lethargic given his medical issues postoperatively; however, from a surgical prospective, the patient has progressed. He is 50 percent weightbearing on the operative side and they are recommending physical therapy and short-term rehab to complete his operative course. Over the last 24 hours, the patient has been medically stable. He is at his baseline mentation. His vital signs have been normal. He is on room air. He has had no issues on telemetry. He continues to be afebrile. We did have a discussion with the patient's and family who are at the bedside who are in agreement that the patient would benefit from short-term rehab given constellation of events for this hospitalization. He has received an offer from [facility]. The family is in agreement for the patient to be discharged to [facility] today. He is in stable condition and will be transferred to that facility this afternoon. DISCHARGE DIAGNOSES: 1. Periprosthetic femoral shaft fracture, status post ORIF. 2. Intraoperative cardiac arrest. 3. Heart failure with preserved ejection fraction. 4. Alzheimer's dementia at baseline. 5. Mild dysphagia. MEDICATIONS FOR DISCHARGE: 1. Tylenol 650 mg p.o. q.6 hours as needed for fever or mild pain. 2. Calcium Carbonate liquid 1,000 mg p.o. q.6 hours. 3. Cyclobenzaprine 5 mg p.o. q.12 hours as needed for spasms or pain. 4. Fentanyl patch 50 mcg transdermal q.72 hours. 5. Lisinopril 10 mg p.o. daily. 6. Multivitamin with minerals liquid 50 ml p.o. daily. 7. Oxycodone 5 mg p.o. q.6 hours as needed for moderate to severe pain for breakthrough. 8. MiraLax 17 gm p.o. daily as needed for constipation. 9. Risperdal 0.5 mg p.o. at bedtime scheduled. 10. Zoloft 50 mg p.o. daily scheduled. REVIEW OF SYSTEMS ON THE DAY OF DISCHARGE: The patient is not a reliable historian secondary to his dementia, but he is not complaining of any pain or shortness of breath or chest pain. No fevers or chills. No overt constitutional complaints. PHYSICAL EXAMINATION: General: He is well-appearing, in no acute distress. Vital Signs: Blood pressure 128/78, heart rate 73, respiratory rate 20, O2 saturation 93 percent on room air, temperature 98.0. HEENT: The patient is atraumatic, normocephalic. PERRLA. Nonicteric sclerae. Oral mucosa is moist. Tongue is midline. Dentition is somewhat poor. Neck: Supple, nontender. No JVD noted. No carotid bruit auscultated. Cardiovascular: S1, S2 present. No murmurs, gallops or rubs noted. Rate and rhythm are regular. Lungs: Clear bilaterally to auscultation with no wheezing, rhonchi or rales. Abdomen: Soft , nontender, nondistended. Positive bowel sounds all four quadrants. No organomegaly noted. : Deferred. Musculoskeletal: There is no clubbing, no cyanosis, no edema. He has +2 distal pulses palpable. There is a clean, dry dressing intact over the operative site. There is no erythema or drainage noted. There is some point tenderness over the operative site. Otherwise, no further pain on palpation noted. Neurologic: He is confused at baseline; however, he is appropriate and able to make his needs known. He is alert to person and does endorse that he knows he is in the hospital. Psychiatric: He is cooperative and appropriate. LABORATORY DATA: WBC 6.5, RBC 2.97, hemoglobin 10.5, hematocrit 30, platelets 163; sodium 142, potassium 3.6, chloride 109, CO2 29, BUN 24, creatinine 0.69, GFR 110, glucose 118, calcium 8,9, phosphorus 1.24, magnesium 2.2, total bilirubin 1.20, AST 46, ALT 19, alk phos 35, last troponin was 0.19, total protein 5.7, albumin 3.1, globulin 2.6, albumin/globulin ratio 1.2; INR 1.16. IMAGING STUDIES: 1. Chest x-ray at admission on 02/03/2019 showed no active cardiopulmonary disease. 2. Follow-up chest x-ray on 02/06/2019 which was prior to extubation showed ET tube with tip centered between the clavicular heads with approximately 6.1 cm above the christina. Feeding tube placement with the tip at the level of the diaphragm or the GE junction. There is question of a hiatal hernia. Otherwise , stable chest considering slightly improved inflation. 3. Hip and pelvis x-ray follow-up postoperatively on showed status post total right hip replacement surgery with operative reduction internal fixation of a periprosthetic fracture which is unchanged. 4. Cardiovascular transthoracic echocardiogram as noted in the body of this document above. 5. EKG on 02/07/2019 showed regular sinus rhythm with some multifocal PVC's and no significant changes since previous EKG. No acute ST segment changes noted. DISPOSITION: The patient was discharged to [facility] [place] in stable condition via stretcher transport. DIET: Pureed with nectar-thick. ACTIVITY: Fifty percent weightbearing on the surgical side as tolerated. Engage in physical therapy with that restriction as tolerated. FOLLOW-UP: The patient is instructed to follow-up with Orthopedics within ten days for a wound check and suture removal. Also should follow-up with his primary care provider after discharge from rehab. TIME SPENT: Forty-five minutes on discharge planning. KERLINE MELENDEZ NP [id number]/CPS #: [id number] SUPA
[2019-02-11 15:58] VITALS: BP 117/64
== END 2019-02-11 14:40 | DRG 480 ==
LOC: ED 11:36 → MED 15:35 → ICU 02-06 16:24 → SSU 02-08 16:22 → MED 02-09 14:16 → UNDODISIN 02-11 14:40
PROVIDERS: ADMIT Hospitalist; ATTEND Internal Medicine
PROC: 0BH17EZ Insertion of Endotracheal Airway into Trachea, Via Natural or Artificial Opening (ICD-10-PCS; 2019-02-06)
PROC: 5A1935Z Respiratory Ventilation, Less than 24 Consecutive Hours (ICD-10-PCS; 2019-02-06)
PROC: 0QS604Z Reposition Right Upper Femur with Internal Fixation Device, Open Approach (ICD-10-PCS; principal; 2019-02-06 12:30)
DX: M97.01XA Periprosthetic fracture around internal prosthetic right hip joint, initial encounter (principal); I46.8 Cardiac arrest due to other underlying condition; F02.81 Dementia in other diseases classified elsewhere, unspecified severity, with behavioral disturbance; I50.32 Chronic diastolic (congestive) heart failure; F05 Delirium due to known physiological condition; I11.0 Hypertensive heart disease with heart failure; T84.050A Periprosthetic osteolysis of internal prosthetic right hip joint, initial encounter; R13.10 Dysphagia, unspecified; G30.9 Alzheimer's disease, unspecified; T88.59XA Other complications of anesthesia, initial encounter; T41.3X5A Adverse effect of local anesthetics, initial encounter; Y92.234 Operating room of hospital as the place of occurrence of the external cause; K21.9 Gastro-esophageal reflux disease without esophagitis; M19.90 Unspecified osteoarthritis, unspecified site; Z66 Do not resuscitate; M41.9 Scoliosis, unspecified; M54.5 Low back pain; W01.0XXA Fall on same level from slipping, tripping and stumbling without subsequent striking against object, initial encounter; Z96.641 Presence of right artificial hip joint; Y92.9 Unspecified place or not applicable; Z79.1 Long term (current) use of non-steroidal anti-inflammatories (NSAID); Z79.899 Other long term (current) drug therapy; Z88.8 Allergy status to other drugs, medicaments and biological substances; Z82.49 Family history of ischemic heart disease and other diseases of the circulatory system; Z87.891 Personal history of nicotine dependence
CPT/HCPCS: 36415; 71045; 76000; 80048; 80053; 82330; 83735; 84100; 84484; 85025; 85027; 85610; 86850; 86900; 86901; 87641; 93005; 93306; 94002; 94003; 99284; A9270-GY; C1776; C8929; G8978-GP-CM; G8979-GP-CK; G8987-GO-CN; G8988-GO-CJ; J0171; J0360; J0690; J1644; J2060; J2250; J2270; J2704; J2710; J2795; J3010; J3480; J3490

== ENCOUNTER 2019-03-14 23:40 | Emergency (ER) | payer MEDICARE, OTHER ==
[2019-03-15 00:25] LABS: ABS Basophils 0.1 10^3/ul (0-0.2); ABS Eosinophils 0.1 10^3/ul (0-0.6); ABS Lymphocytes 1.2 10^3/ul (1.0-4.8); ABS Monocytes 0.6 10^3/ul (0-0.8); ABS Neutrophils 6.8 10^3/ul (1.5-7.7); Eosinophil % 1.4 %; Hematocrit 41 % (42-52); Hemoglobin 13.9 g/dL (14.0-18.0); Lymphocyte % 13.2 %; Mean Corpuscular HGB Conc 34 g/dL (31-36); Mean Corpuscular Hemoglobin 35 pg (27-31); Mean Corpuscular Volume 105 fL (80-94); Mean Platelet Volume 7.6 fL (7.4-10.4); Nucleated Red Blood Cells % 0.1; Platelet Count 218 10^3/uL (150-450); Red Blood Count 3.96 10^6 /uL (4.18-5.48); Red Cell Distribution Width 15 % (10-15); White Blood Count 8.8 10^3/uL (3.5-10.8)
--- OUTSIDE RECORDS SUMMARY | 2019-03-15 00:26 | XMS REPORT | Continuity of Care Document ---
:1940 External Reference #:[id number] Author Name Damaris Rivera M.D. 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 Onset: type, senile onset Anxiety Rosemarie Damon M.D. Onset: 06/22/2014 Social History Type Date Description Comments Sex Unknown ETOH Use Denies alcohol use Tobacco Use Start: Unknown Patient has never smoked Smoking Status Reviewed: 02/19/19 Patient has never smoked Allergies, Adverse Reactions, Alerts Active Allergies Reaction Severity Comments Date Demerol Delusional thinking 04/03/2012 Medications Active Medications SIG Qnty Indications Ordering Provider Date Lisinopril 1 tab po qd 90tabs Unknown 10mg Tablets Multivitamins 1 capsule kiet;y 30caps Unknown Capsules Fentanyl every 3 days Unknown 75mcg/HR Patches 72HR Sertraline HCL 1 by mouth every 90tabs F41.9 Rosemarie Damon, 100mg day M.D. Tablets Levitra take 1 tablet by Unknown 10mg Tablets mouth every day as needed Tylenol 2 tabs three Unknown 325mg Tablets times a day as needed Docusate Sodium take 1 by mouth Unknown Soft Gel each day Tums two tabs every Unknown Chewtabs six hours as needed Immunizations Description No Information Available Vital Signs Date Vital Result Comment 02/19/2019 11:20am Height 70 inches 5'10" Weight 180.00 lb stated Heart Rate 76 /min BP Systolic 138 mmHg BP Diastolic 78 mmHg Respiratory Rate 12 /min Body Temperature 97.1 F Pain Level 0 BMI (Body Mass Index) 25.8 kg/m2 12/13/2018 10:51am Height 70 inches 5'10" Weight 184.50 lb Heart Rate 68 /min BP Systolic 128 mmHg BP Diastolic 72 mmHg BMI (Body Mass Index) 26.5 kg/m2 Results Description No Information Available Procedures Description No Information Available Medical Devices Description No Information Available Encounters Type Date Location Provider Dx Diagnosis Office Visit 02/03/2019 Orthopedic Damaris Rivera, M97.01xA Periprosth 2:[facility]p [facility] fracture around internal prosth r hip jt, init W19.xxxA Unspecified fall, initial encounter Office Visit 12/13/2018 11:00a [place] [facility] Rosemarie Damon, G30.9 [facility] Phong disease, unspecified F41.9 Anxiety disorder, unspecified Assessments Date Code Description Provider 02/19/2019 M97.01xA Periprosthetic fracture around internal Damaris Rivera M.D. prosthetic right hip joint, initial encounter 02/03/2019 M97.01xA Periprosthetic fracture around internal Damaris Rivera M.D. prosthetic right hip joint, initial encounter 02/03/2019 W19.xxxA Unspecified fall, initial encounter Damaris Rivera M.D. 12/13/2018 G30.9 Alzheimer's disease, unspecified Rosemarie Damon M.D. 12/13/2018 F41.9 Anxiety disorder, unspecified Rosemarie Damon M.D. Plan of Treatment Future Appointment(s):03/19/2019 10:30 am - Cristo Carbone M.D. at [facility]/20/2019 10:30 am - Rosemarie Damon M.D. at [place] [facility]02/19/2019 - Damaris Rivera M.D.M97.01xA Periprosthetic fracture around internal prosthetic right hip joint, initial encounterFollow up:Follow up: [address] Carbone Functional Status Description No Information Available Mental Status Description No Information Available Referrals Description No Information Available
--- NOTE | 2019-03-15 00:28 | ED ---
Shortness of Breath - HPI Summary HPI Summary: This patient is an 79 year old male from [facility] brought in by EMS presenting to [facility] with a chief complaint of apnea. Per EMS, [facility] stated he was not breathing and using accessory muscles, while EMS states they did not notice this. ED staff states the patient will occasionally cease breathing for about 10 seconds occasionally and then resume breathing. - History of Current Complaint Chief Complaint: EDRespiratoryDistress Time Seen by Provider: 03/14/19 23:42 Hx Obtained From: EMS Onset/Duration: Sudden Onset, Lasting Minutes Dyspnea At: Rest - Allergy/Home Medications Allergies/Adverse Reactions: Allergies Allergy/AdvReac Type Severity Reaction Status Date / Time duloxetine Allergy Unknown Verified 02/03/19 12:46 Reaction Details hydrocodone Allergy Itching Verified 02/03/19 12:46 meperidine Allergy Rash Verified 02/03/19 12:46 propoxyphene Allergy Unknown Verified 02/03/19 12:46 Reaction Details Home Medications: Home Medications Melatonin/Pyridoxine HCl (B6) [Melatonin 3 mg Tablet] 1 each PO DAILY 03/15/19 [ History Confirmed 03/15/19] traMADol TAB* [Ultram*] 50 mg PO Q6HR PRN 03/15/19 [History Confirmed 03/15/19] PMH/Surg Hx/FS Hx/Imm Hx Endocrine/Hematology History: Denies: Hx Diabetes Cardiovascular History: Reports: Hx Hypertension, Other Cardiovascular Problems/ Disorders - Hx HTN Denies: Hx Angina, Hx Pacemaker/ICD GI History: Reports: Hx Hiatal Hernia, Hx Obstructive Bowel - x2, Hx Ileostomy - reversed, Other GI Disorders - GI RESECTION WITH COLOSTOMY IN PAST History: Reports: Hx Kidney Stones, Other Problems/Disorders - Hx kidney stones Musculoskeletal History: Reports: Hx Arthritis, Hx Back Problems, Hx Scoliosis, Other Musculoskeletal History - lower back problem Denies: Hx Bursitis, Hx Congenital Bone Abnormalities, Hx Fibromyalgia, Hx Gout, Hx Orthopedic Injury, Hx Osteoporosis, Hx Tendonitis Sensory History: Reports: Hx Contacts or Glasses - reading, Hx Hearing Problem - UNGA Denies: Hx Cataracts, Hx Glaucoma, Hx Macular Degeneration, Hx Deafness, Hx Hearing Aid Opthamlomology History: Reports: Hx Contacts or Glasses - reading Denies: Hx Cataracts, Hx Glaucoma, Hx Macular Degeneration Neurological History: Reports: Hx Dementia, Hx Headaches, Hx Migraine, Hx Transient Ischemic Attacks (TIA) Denies: Hx Nerve Disease, Hx Seizures, Hx Spinal Cord Injury Psychiatric History: Reports: Hx Anxiety, Hx Depression Denies: Hx Panic Disorder - Surgical History Surgery Procedure, Year, and Place: Colectomy w/ colostomy and reversal 12 yrs ago, appendectomy, double hernia repair as , tonsillectomy x2, bowel obstruction June Right hip replacement 15years ago Hx Anesthesia Reactions: No - Immunization History Date of Tetanus Vaccine: Unknown Date of Influenza Vaccine: 2011 Infectious Disease History: Unable to Obtain/Confirm Infectious Disease History: Denies: Traveled Outside the [place] in Last 30 Days - Family History Known Family History: Positive: Other Family History: Positive for diverticulitis and heart failure per EMR - Social History Alcohol Use: None Alcohol Amount: glass of wine weekly Hx Substance Use: No Substance Use Type: Reports: None Hx Tobacco Use: No Smoking Status (MU): Never Smoked Tobacco Review of Systems Negative: Fever Positive: Other - Apnea All Other Systems Reviewed And Are Negative: Yes Physical Exam - Summary Physical Exam Summary: General: Well-developed, Well-nourished elderly MALE. Somnolent but arousable. No acute distress. HEENT: Normocephalic, Atraumatic. Eyes: Conjuctiva normal, PERRL. Ears: TMs within normal limits. Nares: (-) discharge, (-) erythema. Oropharynx: Clear, mucous membranes moist, (-) exudates. Neck: Soft, FROM, (-) lymphadenopathy, (-) thyromegaly, (-) JVD. Cardiovascular: Normal sinus rhythm, (-) murmur. Lungs: Clear to auscultation bilaterally (-) wheezes, (-) rales, (-) rhonchi. Abdomen: Soft, non-tender, non-distended, (-) organomegaly, normal bowel sounds. Back: (-) CVA tenderness Extremities: No edema. Skin: Warm, dry, (-) rash. Neuro: Alert and oriented x3, no focal deficits. Psychiatric: Mood normal, affect normal. Triage Information Reviewed: Yes Vital Signs On Initial Exam: Initial Vitals Temp Pulse Resp BP Pulse Ox 97.0 F 75 16 112/75 92 03/14/19 23:47 03/14/19 23:47 03/14/19 23:47 03/14/19 23:47 03/14/19 23:47 Vital Signs Reviewed: Yes Procedures - Sedation Patient Received Moderate/Deep Sedation with Procedure: No Diagnostics - Vital Signs Vital Signs Temp Pulse Resp BP Pulse Ox 03/15/19 00:00 74 12 91 03/14/19 23:52 75 89/59 91 03/14/19 23:51 76 92 03/14/19 23:47 97.0 F 75 16 112/75 92 - Laboratory Result Diagrams: 03/15/19 00:16 03/15/19 00:16 Lab Statement: Any lab studies that have been ordered have been reviewed, and results considered in the medical decision making process. - Radiology CXR Radiology Interpretation Completed By: ED Physician Summary of Radiographic Findings: Large elevated diaphram in the left. Loops of bowel appears to be chronic. No infiltrate or pleural effusions noted. Pending official radiologist report. - EKG 0007 Cardiac Rate: NL - 75 BPM EKG Rhythm: Sinus Rhythm Summary of EKG Findings: No STEMI. ED Provider has reviewed and interpreted this EKG. Course/Dx - Course Course Of Treatment: This patient is an 79 year old male from [facility] brought in by EMS presenting to [facility] with a chief complaint of apnea. EKG reveals Large elevated diaphram in the left. Loops of bowel appears to be chronic. No infiltrate or pleural effusions noted. Labs were unremarkable. A plan for discharge was discussed with the patient and he was agreeable with this plan. - Diagnoses Provider Diagnoses: Dyspnea Discharge ED - Sign-Out/Discharge Documenting (check all that apply): Patient Departure - Discharge - Discharge Plan Condition: Stable Disposition: HOME Patient Education Materials: Dyspnea (ED) Referrals: Mee Pink MD [Primary Care Provider] - Additional Instructions: Return to ED with any new or worsening symptoms. - Billing Disposition and Condition Condition: STABLE Disposition: Home - Attestation Statements Document Initiated by Bryan: Yes Documenting Scribe: Cecilio Ortega Provider For Whom Bryan is Documenting (Include Credential): Viry Hayes MD Scribe Attestation: Cecilio Franco scribed for Viry Hayes MD on 03/15/19 at 0300. Scribe Documentation Reviewed: Yes Provider Attestation: The documentation as recorded by the Cecilio nesbitt accurately reflects the service I personally performed and the decisions made by me, Viry Hayes MD Status of Scribe Document: Viewed
[2019-03-15] MEDS ORDERED: NS 0.9% 1000 ML** 1,000 ML IV ONE (00:40)
[2019-03-15 00:41] LABS: INR 1.03 (0.82-1.09)
[2019-03-15 00:52] LABS: Troponin I 0.02 ng/mL (<0.04)
[2019-03-15 00:53] LABS: Potassium 4.9 mmol/L (3.5-5.0)
[2019-03-15 01:22] LABS: BUN/Creatinine Ratio 22.9 (8-20); Calcium 10.1 mg/dL (8.6-10.3); EGFR African American 41.9 (>60); EGFR Non-African American 34.6 (>60); Total Bilirubin 0.7 mg/dL (0.2-1.0)
[2019-03-15 01:34] LABS: Albumin/Globulin Ratio 1.6 (1-3); Globulin 2.5 g/dL (2-4); Total Protein 6.5 g/dL (6.4-8.9)
[2019-03-15 02:41] VITALS: BP 90/55
== END 2019-03-15 02:40 | disposition home or self-care (01) ==
LOC: ED 23:40
DX: R06.00 Dyspnea, unspecified (principal); I10 Essential (primary) hypertension; Z96.641 Presence of right artificial hip joint; Z88.5 Allergy status to narcotic agent; Z88.8 Allergy status to other drugs, medicaments and biological substances
CPT/HCPCS: 36415; 71045; 80053; 83605; 83880; 84484; 85025; 85610; 93005; 96360; 96361; 99284